=== PATIENT | male | born 1930 | race Two or more races ===

== ENCOUNTER 2020-01-28 13:29 | Inpatient (IN) | payer MEDICARE, OTHER ==
[~2020-01-28] VITALS: Ht 162.6 cm; Wt 59.0 kg
--- NOTE | 2020-01-28 13:45 | NUR ---
ANGEL [phone]. [facility] [phone].
[2020-01-28] MEDS ORDERED: ACETAMINOPHEN 650 MG/SUPP.RECT RC ONE ×2 (13:58→14:00)
[2020-01-28] MEDS ORDERED: IV NS 0.9% 500 ML IV ONE (14:00)
--- NOTE | 2020-01-28 14:22 | NUR ---
BIBA 878 From Home "Been Coughing x1wk, Now have Fever". PT AAOX2, VSS. RR EVEN & UNLABORED. DENIES CP, SOB, DIZZINESS, N/V/D AT THIS TIME. PT SEEN & EVAL'D BY DR. CROWLEY. PLACED ON FAMILY COACH, SR. MEDICATED ORDERED, PT TY WELL. WILL CONT TO MONITOR.
[2020-01-28] MEDS ORDERED: QUET25TA PO (14:43)
[2020-01-28] MEDS ORDERED: METF-442 PO (14:43)
[2020-01-28] MEDS ORDERED: AMLO5TAB9 PO (14:43)
[2020-01-28] MEDS ORDERED: AMIO200T4 PO (14:43)
[2020-01-28] MEDS ORDERED: BIMA2.5D5 EACHEYE (14:43)
[2020-01-28] MEDS ORDERED: MIDO5TAB4 PO (14:43)
[2020-01-28] MEDS ORDERED: BRIM5DRO2 EACHEYE (14:43)
[2020-01-28] MEDS ORDERED: POTA10TA11 PO (14:43)
[2020-01-28] MEDS ORDERED: LEVO75TA7 PO (14:43)
[2020-01-28] MEDS ORDERED: GABA-532 PO (14:43)
[2020-01-28] MEDS ORDERED: LANS30CA56 PO (14:43)
[2020-01-28] MEDS ORDERED: TAMS-12 PO (14:43)
[2020-01-28] MEDS ORDERED: FURO20TA4 PO (14:43)
[2020-01-28] MEDS ORDERED: SIMV10TA98 PO (14:43)
[2020-01-28] MEDS ORDERED: BENA20TA9 PO (14:43)
[2020-01-28] MEDS ORDERED: FINA5TAB11 PO (14:43)
[2020-01-28 14:48] LABS: APPEARANCE,URINE Clear (CLEAR); BILIRUBIN,URINE Negative (NEGATIVE); BLOOD, URINE Negative Ery/uL (NEGATIVE); COLOR,URINE Yellow (YELLOW); KETONES,URINE Negative (NEGATIVE); LEUKOCYTE ESTERASE ,URINE Negative (NEGATIVE); NITRITE, URINE Negative (NEGATIVE); PH,URINE 7.5 (5.0-8.0); PROTEIN,URINE Negative (NEGATIVE); UGLUCOSE Negative (NEGATIVE); UROBILINOGEN,URINE 0.2 EU/dL (0.2)
[2020-01-28 14:50] LABS: BASOPHILS % (AUTO) 0.2 % (0.0-2.0); EOSINOPHILS % (AUTO) 0.4 % (0.0-6.0); HEMATOCRIT 34 % (39-51); HEMOGLOBIN 11.4 g/dL (13.5-17.5); LYMPHOCYTES # (AUTO) 0.9 /CMM (0.8-4.8); LYMPHOCYTES % (AUTO) 6.6 % (20.0-44.0); MEAN CORPUSCULAR HGB CONC 33 g/dl (31.0-36.0); MEAN CORPUSCULAR VOLUME 102 fL (80-96); MONOCYTES # (AUTO) 0.8 /CMM (0.1-1.30); MONOCYTES % (AUTO) 5.6 % (2.0-12.0); NEUTROPHILS # (AUTO) 12.4 /CMM (1.8-8.9); NEUTROPHILS % (AUTO) 87.2 % (43.0-81.0); PLATELET COUNT (AUTO) 225 /CMM (150-450); RED BLOOD CELL COUNT(AUTO) 3.38 MIL/uL (4.5-6.0); WHITE BLOOD COUNT (AUTO) 14.2 K/uL (4.3-11.0)
[2020-01-28 14:57] LABS: CALCIUM, SERUM 9.6 mg/dL (8.5-10.1); CARBON DIOXIDE 28 mmol/L (21-32); CHLORIDE 100 mmol/L (98-107); CREATININE 1.9 mg/dL (0.6-1.3); GLUCOSE 146 mg/dL (74-106); POTASSIUM 4.6 mmol/L (3.5-5.1); SODIUM SERUM 138 mmol/L (136-145); UREA NITROGEN, BLOOD 41 mg/dL (7-18)
[2020-01-28 15:09] LABS: ALANINE AMINOTRANSFERASE 17 U/L (12-78); ALBUMIN 3.8 g/dL (3.4-5.0); ALKALINE PHOSPHATASE 79 U/L (46-116); ASPARTATE AMINOTRANSFERASE 19 U/L (15-37); B-TYPE NATRIURETIC PEPTIDE 569 PG/ML (0-125); BILIRUBIN,TOTAL 0.5 mg/dL (0.2-1.0); TOTAL PROTEIN, SERUM 8.1 g/dL (6.4-8.2)
[2020-01-28 15:23] LABS: D-DIMER 0.66 mg/L(FEU (0.17-0.50)
[2020-01-28] MEDS ORDERED: VANCOMYCIN 1 GM in IV D5W 250 ML IV ONE (15:30)
[2020-01-28] MEDS ORDERED: IV NS 0.9% 500 ML BAG IV ONE (15:30)
[2020-01-28] MEDS ORDERED: PIPERACILLIN /TAZOBACTAM 3.375 G in IV D5W 50 ML IV ONE (15:30)
[2020-01-28 16:17] LABS: CREATINE KINASE, TOTAL 43 U/L (39-308); FERRITIN 131 ng/mL (8-388)
[2020-01-28 16:20] LABS: C-REACTIVE PROTEIN 6.9 mg/dL (0.0-0.9)
--- NOTE | 2020-01-28 16:53 | NUR ---
PAGED SHERRON WISE
--- NOTE | 2020-01-28 17:00 | NUR ---
PT ASLEEP, EASILY AWAKEN BY VERBAL STIMULI, VSS. RR EVEN & UNLABORED. NAD NOTED AT THIS TIME & WILL CONT TO MONITOR.
[2020-01-28] MEDS ORDERED: FEE PK DOSING 1 MIN EA MC ONE (17:26)
[2020-01-28] MEDS ORDERED: ACETAMINOPHEN 325 MG TABLET PO PRN (17:30)
[2020-01-28] MEDS ORDERED: ONDANSETRON HCL/PF 4 MG/2 ML VIAL IVP PRN (17:30)
[2020-01-28] MEDS ORDERED: ZOLPIDEM TARTRATE 5 MG TABLET PO PRN (17:30)
[2020-01-28] MEDS ORDERED: MAGNESIUM HYDROXIDE 30 ML UDC PO PRN (17:30)
[2020-01-28] MEDS ORDERED: HYDROCODONE/APAP 5/325MG 1 EACH TABLET PO PRN (17:30)
--- NOTE | 2020-01-28 18:10 | NUR ---
REPORT GIVEN TO TRIXIE BRASWELL FOR MARITZA.
--- NOTE | 2020-01-28 18:42 | NUR ---
Received patient form ER via [facility]. Patient is A/Ox1, Kiswahili speaker, on RA, tolerating well O2 sat is 98%, IV on R AC g18 noted, intact and patent, running Vancomycin @250 cc/hr, Vital sights taking upon admission, BP 115/48, HR:65, Temp 97, Resp 14. Safety measures implemented, bed in lowest position, side rails up x2, call light within reach, will endorse to Mabel JACOBO shift RN for MARITZA
--- NOTE | 2020-01-28 19:45 | NUR ---
RN OPENING NOTE RECEIVED PT IN BED. PT IS CONFUSED. NO S/S OF DISTRESS. NO SOB. PT IS ON RA SATING 97%. PT HAS IV ACCESS 18 G AC S/L . IV INTACT FLUSHES WELL. SAFETY MEASURES IN PLACE. BED AT LOWEST POSITION, LOCKED,SIDE RAILS UP, CALL LIGHT IN REACH. WILL CONTINUE TO MONITOR
[2020-01-28 20:00] VITALS: BP 151/67
[2020-01-28] MEDS ORDERED: PIPERACILLIN /TAZOBACTAM 2.25 G in IV D5W 50 ML IV SCH (21:00)
[2020-01-28] MEDS ORDERED: MEROPENEM 1 G in IV NS 0.9% 100 ML IV SCH ×4 (21:30)
--- NOTE | 2020-01-28 22:01 | NUR ---
RN NOTES CONFIRMED WITH [facility] AFTER HOURS THAT MERREM 1 GM TO BE GIVEN NOW ; SPOKE TO QUIRINO
[2020-01-28] MEDS ORDERED: MEROPENEM 1 G VIAL IV ONE (22:04)
[2020-01-28] MEDS: IV NS 0.9% 1,000 ML IV PRN (22:07)
[2020-01-28 22:12] LABS: BILIRUBIN,DIRECT 0.2 mg/dL (0.0-0.2)
--- NOTE | 2020-01-28 22:30 | NUR ---
RN NOTE RECEIVED CRITICAL LAB VALUE LACTIC ACID 2.6. MD MADE AWARE NO ORDER AT THIS TIME.
[2020-01-28] MEDS: BIMATOPROST 2.5 ML DROPS OP SCH (23:00)
[2020-01-28] MEDS ORDERED: DEXTROSE 50%-WATER 50 ML DISP.SYRIN IV PRN (23:00)
--- NOTE | 2020-01-28 23:00 | NUR ---
RN NOTE EYE DROP NON ADMIN BECAUSE IT IS NOT AVAILABLE. MED FAXED TO [facility]YSIC[facility] , IT IS NOT AVAILABLE.
[2020-01-29] VITALS: BP 122/64
[2020-01-29] MEDS: BLOOD SUGAR DIAGNOSTIC 1 EACH STRIP IN SCH ×5 (01:42→23:25)
[2020-01-29] MEDS: PANTOPRAZOLE 40 MG VIAL IV SCH ×2 (01:43→22:17)
--- NOTE | 2020-01-29 02:06 | NUR ---
RN NOTE BED SIDE SWALLOW GUANKAO DONE PT UNABLE TO FOLLOW COMMANDS, MD MADE AWARE . NEW ORDER FOR D5 AT 75 ML/HR. WILL CONTINUE TO MONITOR
[2020-01-29] MEDS: IV D5W 1,000 ML IV PRN ×2 (02:53→09:47)
[2020-01-29 04:00] VITALS: BP 119/60
[2020-01-29 06:20] LABS: BASOPHILS % (AUTO) 0.2 % (0.0-2.0); EOSINOPHILS % (AUTO) 0.5 % (0.0-6.0); HEMATOCRIT 30 % (39-51); LYMPHOCYTES # (AUTO) 1.1 /CMM (0.8-4.8); LYMPHOCYTES % (AUTO) 7.6 % (20.0-44.0); MEAN CORPUSCULAR HGB CONC 33 g/dl (31.0-36.0); MEAN CORPUSCULAR VOLUME 103 fL (80-96); MONOCYTES % (AUTO) 6.4 % (2.0-12.0); NEUTROPHILS # (AUTO) 12.9 /CMM (1.8-8.9); NEUTROPHILS % (AUTO) 85.3 % (43.0-81.0); PLATELET COUNT (AUTO) 171 /CMM (150-450); RED BLOOD CELL COUNT(AUTO) 2.95 MIL/uL (4.5-6.0); WHITE BLOOD COUNT (AUTO) 15.1 K/uL (4.3-11.0)
[2020-01-29] MEDS ORDERED: MEROPENEM 1 G VIAL IV ONE (06:33)
[2020-01-29] MEDS: MEROPENEM 1 G in IV NS 0.9% 100 ML IV SCH ×2 (06:36→19:01)
--- NOTE | 2020-01-29 06:47 | NUR ---
RN CLOSING NOTE PT REMAINED STABLE DURING MY SHIFT. VSS. WILL ENDORSE TO INCOMING SHIFT FOR MARITZA.
--- NOTE | 2020-01-29 07:30 | NUR ---
RN NOTES RECEIVED PATIENT IN BED. AWAKE, VERBAL BUT IS NOT APPROPRIATE. ON ROOM AIR. TOLERATING WELL. SATING FINE. NO SHORTNESS OF BREATH NOTED AT THIS TIME. SINUS RHYTHM ON THE MONITOR WITH HR ON THE 70s. PATIENT CLEAN AND COMFORTABLE IN BED. IV ACCESS ON THE RFA G [address] AND INTACT, FLUSHING WELL. WITH ONGOING D5W AT 70 CC/HR. RESTRAINTS ON THE R WRIST, REMOVE AND REPLACED TO CHECK FOR SKIN INTEGRITY, NO SKIN ISSUE NOTED AT THIS TIME. SAFETY MEASURES OBSERVED AND MAINTAINED. A CALL LIGHT PLACED WITHIN REACH. WILL KEEP PATIENT ON ISOLATION AND WILL CONTINUE TO MONITOR PATIENT ACCORDINGLY
[2020-01-29 07:52] LABS: CALCIUM, SERUM 8.5 mg/dL (8.5-10.1); CARBON DIOXIDE 25 mmol/L (21-32); CHLORIDE 101 mmol/L (98-107); CREATININE 1.5 mg/dL (0.6-1.3); GLUCOSE 129 mg/dL (74-106); MAGNESIUM 1.5 mg/dL (1.8-2.4); PHOSPHORUS 3.6 mg/dL (2.5-4.9); POTASSIUM 3.9 mmol/L (3.5-5.1); SODIUM SERUM 137 mmol/L (136-145); UREA NITROGEN, BLOOD 31 mg/dL (7-18)
[2020-01-29 08:00] VITALS: BP 158/67
[2020-01-29 08:12] LABS: CHOLESTEROL 113 mg/dL (<200); CREATINE KINASE, TOTAL 59 U/L (39-308); HDL CHOLESTEROL 51 mg/dL (40-60); LDL 53 mg/dL (0-99); TRIGLYCERIDES 74 mg/dL (30-150)
[2020-01-29 08:23] LABS: APPEARANCE,URINE CLEAR (CLEAR); BILIRUBIN,URINE NEGATIVE (NEGATIVE); BLOOD, URINE NEGATIVE Ery/uL (NEGATIVE); COLOR,URINE YELLOW (YELLOW); KETONES,URINE NEGATIVE (NEGATIVE); LEUKOCYTE ESTERASE ,URINE NEGATIVE (NEGATIVE); NITRITE, URINE NEGATIVE (NEGATIVE); PROTEIN,URINE NEGATIVE (NEGATIVE); UGLUCOSE NEGATIVE (NEGATIVE); UROBILINOGEN,URINE 0.2 EU/dL (0.2)
[2020-01-29] MEDS: LEVOTHYROXINE SODIUM 75 MCG TABLET PO SCH (08:25)
[2020-01-29] MEDS: HEPARIN SODIUM, PORCINE 5000 UNITS/1 ML VIAL SQ SCH ×2 (08:25→20:24)
[2020-01-29] MEDS: BRIMONIDINE TARTRATE OPHT SOLN 5 ML BOTTLE EACHEYE SCH ×2 (08:26→17:18)
[2020-01-29] MEDS: TIMOLOL 0.5% SOLN OPHTH 5 ML BOTTLE EACHEYE SCH ×2 (08:26→17:18)
[2020-01-29] MEDS: ASPIRIN 81 MG TAB.CHEW PO SCH (08:27)
[2020-01-29] MEDS: AMIODARONE HCL 200 MG TABLET PO SCH (08:27)
[2020-01-29] MEDS: GABAPENTIN 100 MG CAPSULE PO SCH ×3 (08:28→17:18)
[2020-01-29] MEDS: TAMSULOSIN 0.4 MG CAP.SR.24H PO SCH (08:28)
[2020-01-29] MEDS: AMLODIPINE BESYLATE 5 MG TABLET PO SCH (08:28)
[2020-01-29] MEDS: FINASTERIDE (5 MG) 5 MG TABLET PO SCH (08:29)
[2020-01-29 08:38] LABS: CREATININE, URINE 45.8 MG/DL (30.0-125.0); URINE TOTAL PROTEIN 31.4 mg/dL (0-11.9)
[2020-01-29] MEDS ORDERED: ENOXAPARIN SODIUM 30 MG/0.3 ML DISP.SYRIN SQ SCH (10:00)
[2020-01-29] MEDS: Magnesium 1GM/D5W 100ML PREMIX 100 ML IV SCH ×2 (10:13→11:32)
[2020-01-29 10:14] LABS: EOSINOPHIL,URINE None Seen
[2020-01-29 10:16] LABS: IRON, SERUM 21 ug/dl (50-175); TOTAL IRON BINDING CAPACITY 269 ug/dl (250-450)
[2020-01-29 10:27] LABS: CHOLESTEROL 110 mg/dL (<200); HDL CHOLESTEROL 49 mg/dL (40-60); LDL 53 mg/dL (0-99); THYROID STIMULATING HORMONE 0.452 uIU/mL (0.358-3.74); TRIGLYCERIDES 68 mg/dL (30-150)
[2020-01-29 12:00] VITALS: BP 144/46
[2020-01-29] MEDS: INSULIN REGULAR, HUMAN 100 UNIT/ML 3 ML VIAL SQ PRN ×2 (12:43→23:20)
[2020-01-29 16:00] VITALS: BP 159/60
[2020-01-29] MEDS ORDERED: VANCOMYCIN 500 MG in IV D5W 100ml IV SCH (17:00)
[2020-01-29] MEDS ORDERED: VANCOMYCIN 0.75 GM in IV D5W 250 ML IV SCH (17:00)
--- NOTE | 2020-01-29 19:12 | NUR ---
rn notes endorsed for continuity of care. not on any form of distress. breathing unlabored. still on room air. no acute changes within the shift. all nursing needs attended and met. safety measures in place at all times. call light within reach. isolation precaution imitated at all time.
--- NOTE | 2020-01-29 19:30 | NUR ---
RN OPENING NOTES Received patient resting in bed, with no s/s/ of distress, client is saturating at 98% RA. A/O x 2. NO s/s of pain, the client denies pain. The client is on external telemonitor, SR, HR 80. Skin is intact, the left limb is contracted. The client is R wrist soft restraint to prevent disruption of mediation. The client has R 22G, flushing well. All safety mechanisms in place. Bed in the lowest position, call light within reach. Will continue to monitor the client.
[2020-01-29 20:00] VITALS: BP 145/85
--- NOTE | 2020-01-29 20:30 | NUR ---
RN NOTES Sputum sample was collected and sent to the lab for sputum culture.
[2020-01-29] MEDS: BIMATOPROST 2.5 ML DROPS OP SCH (22:00)
[2020-01-29] MEDS: ATORVASTATIN 10 MG TABLET PO SCH (22:17)
--- NOTE | 2020-01-29 22:55 | NUR ---
RN NOTES Nasopharynx swab collected and sent to lab for influenza A+B.
[2020-01-30] VITALS (8 sets, daily range): BP systolic 86–163; BP diastolic 30–85
[2020-01-30] MEDS: IV NS 0.9% 1,000 ML IV PRN (05:06)
[2020-01-30] MEDS: MEROPENEM 1 G in IV NS 0.9% 100 ML IV SCH ×2 (05:09→17:46)
[2020-01-30] MEDS: BLOOD SUGAR DIAGNOSTIC 1 EACH STRIP IN SCH ×3 (05:27→18:02)
--- NOTE | 2020-01-30 06:22 | NUR ---
RN CLOSING NOTES patient IS resting in bed, with no s/s/ of distress, client is saturating at 100% RA. A/O x 2. NO s/s of pain, the client denies pain. The client is on external telemonitor, SR, HR 70. The client bilateral wrist restrains, skin is intact, capillary refill less than 3 sec. The client has R 22G, flushing well. All safety mechanisms in place. Bed in the lowest position, call light within reach. Will endorse the client for continuity of care.
[2020-01-30 06:27] LABS: BASOPHILS % (AUTO) 0.3 % (0.0-2.0); EOSINOPHILS % (AUTO) 0.5 % (0.0-6.0); HEMATOCRIT 27 % (39-51); HEMOGLOBIN 9.2 g/dL (13.5-17.5); LYMPHOCYTES # (AUTO) 1.2 /CMM (0.8-4.8); LYMPHOCYTES % (AUTO) 14.7 % (20.0-44.0); MEAN CORPUSCULAR HGB CONC 34 g/dl (31.0-36.0); MEAN CORPUSCULAR VOLUME 102 fL (80-96); MONOCYTES # (AUTO) 0.4 /CMM (0.1-1.30); MONOCYTES % (AUTO) 5.2 % (2.0-12.0); NEUTROPHILS # (AUTO) 6.7 /CMM (1.8-8.9); NEUTROPHILS % (AUTO) 79.3 % (43.0-81.0); PLATELET COUNT (AUTO) 173 /CMM (150-450); RED BLOOD CELL COUNT(AUTO) 2.69 MIL/uL (4.5-6.0); WHITE BLOOD COUNT (AUTO) 8.4 K/uL (4.3-11.0)
[2020-01-30 06:58] LABS: CALCIUM, SERUM 7.7 mg/dL (8.5-10.1); CREATININE 1.2 mg/dL (0.6-1.3); MAGNESIUM 1.7 mg/dL (1.8-2.4); PHOSPHORUS 2.6 mg/dL (2.5-4.9)
--- NOTE | 2020-01-30 07:25 | NUR ---
RN OPENING NOTES Received patient in bed, sleeping. A/O x 2, Guyanese speaking only. Patient is on RA, tolerating well, no s/sx of distress, O2 sat is 98%, IV site noted on R arm, running NS @75cc/hr, intact and patent. Skin is intact, soft restrains is on, tolerating well. Bed in lowest position, call light within reach, side rails x2, safety measures implemented, will cont to monitor
[2020-01-30] MEDS: LEVOTHYROXINE SODIUM 75 MCG TABLET PO SCH (07:39)
[2020-01-30] MEDS: ASPIRIN 81 MG TAB.CHEW PO SCH (08:07)
[2020-01-30] MEDS: FINASTERIDE (5 MG) 5 MG TABLET PO SCH (08:07)
[2020-01-30] MEDS: AMLODIPINE BESYLATE 5 MG TABLET PO SCH (08:08)
[2020-01-30] MEDS: TAMSULOSIN 0.4 MG CAP.SR.24H PO SCH (08:09)
[2020-01-30] MEDS: AMIODARONE HCL 200 MG TABLET PO SCH (08:09)
[2020-01-30] MEDS: GABAPENTIN 100 MG CAPSULE PO SCH ×3 (08:13→17:39)
[2020-01-30] MEDS: HEPARIN SODIUM, PORCINE 5000 UNITS/1 ML VIAL SQ SCH ×2 (08:13→21:28)
[2020-01-30] MEDS ORDERED: POTASSIUM CHLORIDE 20 MEQ TAB.PRT.SR PO SCH (09:00)
[2020-01-30] MEDS: BRIMONIDINE TARTRATE OPHT SOLN 5 ML BOTTLE EACHEYE SCH ×2 (09:16→17:42)
[2020-01-30] MEDS: TIMOLOL 0.5% SOLN OPHTH 5 ML BOTTLE EACHEYE SCH ×2 (09:16→17:42)
[2020-01-30] MEDS: hydrALAZINE HCL 50 MG TABLET PO SCH ×3 (09:22→17:00)
[2020-01-30] MEDS: ISOSORBIDE DINITRATE (20MG) 20 MG TABLET PO SCH ×2 (09:22→17:00)
[2020-01-30] MEDS: Magnesium 1GM/D5W 100ML PREMIX 100 ML IV SCH ×2 (09:23→10:38)
--- NOTE | 2020-01-30 11:00 | NUR ---
Pt releases himself from restrains, pulled out IV, and tele-monitor leaads, started new IV line of R FA G20, patent, intact, reapplied soft restraints
--- NOTE | 2020-01-30 11:41 | NUR ---
Dimitris Bourgeois, spoke to Pharmacy, waiting for trough results
[2020-01-30] MEDS ORDERED: QUETIAPINE FUMARATE 25 MG TABLET PO ONE (12:00)
--- NOTE | 2020-01-30 12:03 | NUR ---
BULLDOZER OPERATOR ordered Seroquel 25 mg, PO, ONCE, will administer
[2020-01-30 12:16] LABS: PTH, INTACT 29 pg/mL (15-65)
--- NOTE | 2020-01-30 12:30 | NUR ---
Patient pulled out his IV again, new line on Left FA G22 started, patent and intact
[2020-01-30] MEDS ORDERED: VANCOMYCIN 0.75 GM in IV D5W 250 ML IV SCH (13:00)
[2020-01-30] MEDS: INSULIN REGULAR, HUMAN 100 UNIT/ML 3 ML VIAL SQ PRN ×2 (13:06→18:04)
--- NOTE | 2020-01-30 13:07 | NUR ---
OK TO GIVE VANCO PER PHARMACY
--- NOTE | 2020-01-30 18:00 | NUR ---
Patient BP went down, did multiple measurement and locations, ANALOG IC DESIGN ARCHITECT notified
--- NOTE | 2020-01-30 19:25 | NUR ---
RN CLOSING NOTES Patient sleeping at bed , has continuous BP monitoring with latest reading 78/35 PIZZAMAKER notified, obtained order for IV bolus. Safety measures implemented, call light within reach, bed in lowest position, comfort needs are met, endorsing to Dividend Clerk TRIXIE Monroe for cont of care
[2020-01-30] MEDS ORDERED: IV NS 0.9% 1,000 ML IV ONE (19:30)
--- NOTE | 2020-01-30 19:35 | NUR ---
1934 SUMMONED TO PATIENT'S ROOM, PATIENT IN BED WITH IVF BOLUS INFUSING TO LEFT HAND IV SITE. BP 77/40 WHEN CHECKED. NO SIGNS OF DISTRESS NOTED. STARTED NEW IV ACCESS ON RIGHT FOREARM, PATIENT STARTED GETTING AGITATED AND TRYING TO PULL ARM AND SIDE RAILS. NOTED MAKING INCOMPREHENSIBLE SOUNDS. RECHECKED BP AND OBTAINED 103/78 WITH CUFF ON RIGHT LEG. PLACED PATIENT ON O2 AT 2L PER NC. O2 SATURATION 98%-99%. NO SIGNS OF FLUID OVERLOAD NOTED. KEPT PATIENT COMFORTABLE. MONITORING CLOSELY.
--- NOTE | 2020-01-30 19:45 | NUR ---
RN OPENING NOTE PT RECEIVED IN BED LETHARGIC WITH BP 83/35 CUFF ON R LEG. BP TAKEN ON R ARM WAS 77/35 . DAY SHIFT NURSE GOT ORDER OF 9% NS BOLUS FROM DR WISE. BOLUS IS INFUSING TO LEFT ARM.RECHECKED BP ON R LEG 103/78. CHARGE NURSE MADE AWARE AND SHE IS PRESENT AT BED SIDE. NEW IV SITE STARTED ON R ARM 20 G PT IS ON 2 L VIA NC SATING ABOVE 97%. NO DISTRESS NOTED. WILL CONTINUE TO MONITOR
--- NOTE | 2020-01-30 20:48 | NUR ---
RN NOTE BP IMPROVING 145/57.
[2020-01-30] MEDS: BIMATOPROST 2.5 ML DROPS OP SCH (22:00)
[2020-01-30] MEDS: QUETIAPINE FUMARATE 25 MG TABLET PO SCH (22:15)
[2020-01-30] MEDS: ATORVASTATIN 10 MG TABLET PO SCH (22:15)
--- NOTE | 2020-01-30 22:18 | NUR ---
RN NOTE MELANIE KRISHNAIN , IT IS NOT AVAILABLE
--- NOTE | 2020-01-30 23:00 | NUR ---
RN OPENING NOTE RECEIVED A PATIENT IN BED RESTING ALERT ORIENTED X1 VERBALLY RESPONSIVE MONGOLIAN SPEAKER BREATHING IS EVEN AND UNLABORED ON 2L/MIN OXYGEN VIA NASAL CANUULA,O2:98% IV NORMAL SALINE RUNNING 75CC/HR IV SITE ON LEFT FOREARM INTACT.ACCU CHECK EVERY HOURS CONTINUE TO MONITOR.
--- NOTE | 2020-01-30 23:08 | NUR ---
RN CLOSING NOTE WILL ENDORSE TO ARACELI MARCUM FOR MARITZA.
[2020-01-30] MEDS: PANTOPRAZOLE 40 MG VIAL IV SCH (23:18)
[2020-01-31] VITALS (8 sets, daily range): BP systolic 118–135; BP diastolic 44–62
--- NOTE | 2020-01-31 00:01 | NUR ---
RN OPENING NOTE RECEIVED PT IN BED AND APPEARS RESTING COMFORTABLY. VERBAL BUT CONFUSED, IN NO S/SX OF ACUTE DISTRESS AT THIS TIME. BREATHING IS EVEN AND UNLABORED, SATURATING AT 98-100% ON O2 AT 2 LPM VIA NC, TOLERATING WELL. PATIENT ON TELE MONITOR READING SINUS RHYTHM, HR IS @60'S. NOTED IV SITE ON RIGHT FOREARM G22, LEAKING, AND LEFT FOREARM WITH NS 1000 ML RUNNING AT 75 ML/HR, PATENT AND FLUSHING WELL,NO S/S OF INFECTION OR INFILTRATION. NOTED MEDICAL RESTRAINTS AT RIGHT WRIST. KEPT CLEAN AND COMFORTABLE. SAFETY MEASURES IMPLEMENTED PER PROTOCOL. PATIENT BED ALARM IS ON. HEAD OF BED ELEVATED. BED IS LOCKED, IN LOWEST POSITION AND SIDE RAILS UP. CALL LIGHT WITHIN REACH OF THE PATIENT. WILL CONTINUE TO MONITOR AND REASSESS FOR ANY CHANGES. Addendum: 02/01/20 at 0417 by PARADISE BOND RN INCORRECT DATE AND TIME
[2020-01-31] MEDS: BLOOD SUGAR DIAGNOSTIC 1 EACH STRIP IN SCH ×4 (00:05→17:41)
[2020-01-31] MEDS: INSULIN REGULAR, HUMAN 100 UNIT/ML 3 ML VIAL SQ PRN ×2 (00:05→05:43)
[2020-01-31] MEDS: MEROPENEM 1 G in IV NS 0.9% 100 ML IV SCH ×2 (05:27→17:42)
--- NOTE | 2020-01-31 05:45 | NUR ---
RN NOTE AT 0000 02/01/20 BLOOD SUGAR WAS 117 NO INSULIN ADMINISTERED,AT 0600 BLOOD SUGAR WAS 114 INSULIN NOT REQUIRED.
[2020-01-31 06:18] LABS: BASOPHILS % (AUTO) 0.5 % (0.0-2.0); EOSINOPHILS % (AUTO) 1.9 % (0.0-6.0); HEMATOCRIT 25 % (39-51); HEMOGLOBIN 8.4 g/dL (13.5-17.5); LYMPHOCYTES % (AUTO) 18.6 % (20.0-44.0); MEAN CORPUSCULAR HGB CONC 34 g/dl (31.0-36.0); MEAN CORPUSCULAR VOLUME 102 fL (80-96); MONOCYTES # (AUTO) 0.5 /CMM (0.1-1.30); MONOCYTES % (AUTO) 9.8 % (2.0-12.0); NEUTROPHILS # (AUTO) 3.6 /CMM (1.8-8.9); NEUTROPHILS % (AUTO) 69.2 % (43.0-81.0); PLATELET COUNT (AUTO) 185 /CMM (150-450); RED BLOOD CELL COUNT(AUTO) 2.44 MIL/uL (4.5-6.0); WHITE BLOOD COUNT (AUTO) 5.3 K/uL (4.3-11.0)
[2020-01-31 06:38] LABS: CALCIUM, SERUM 8.4 mg/dL (8.5-10.1); CARBON DIOXIDE 25 mmol/L (21-32); CHLORIDE 105 mmol/L (98-107); CREATININE 1.5 mg/dL (0.6-1.3); GLUCOSE 123 mg/dL (74-106); PHOSPHORUS 3.2 mg/dL (2.5-4.9); POTASSIUM 4.2 mmol/L (3.5-5.1); SODIUM SERUM 139 mmol/L (136-145); UREA NITROGEN, BLOOD 19 mg/dL (7-18)
[2020-01-31 06:44] LABS: MAGNESIUM 2.1 mg/dL (1.8-2.4)
--- NOTE | 2020-01-31 06:59 | NUR ---
RN CLOSING NOTE. PATIENT IS IN BED RESTING,ALERT ORIENTED X1 VERBALLY RESPONSIVE,LATVIAN SPEAKER ONLY,NO SOB NOT ACUTE DISTRESS NOTED,ON 2L OXYGEN VIA NASAL CANNULA,O2:98%.ALL DUE MEDS GIVEN MD ORDERED,KEPT CLEAN AND DRY ALL THE TIME,ON IV HYDRATION NORMAL SALINE 75CC/HR,IV SITE IS ON LEFT FOREARM,INTACT.ALL NEEDS ATTENDED, WILL ENDORSE MORNING SHIFT FOR CONTINUATION OF CARE.
--- NOTE | 2020-01-31 07:58 | NUR ---
MARIA RN OPENING NOTES RECEIVED PATIENT IN BED, ASLEEP. PATIENT IS ON OXYGEN THERAPY AT 2 LPM; BREATHING IS EVEN AND UNLABORED; NO SOB PRESENT AT THIS TIME. EXTERNAL CATALYST OPERATOR CHIEF WITH A CURRENT READING OF SINUS RHYTHM 63 BPM. NO S/S OF PAIN SUCH FACIAL GRIMACING, MOANING OR GUARDING. LFA IV ACCESS G # 22 PRESENT AND INTACT. SAFETY PRECAUTIONS IN PLACE; BED IN LOW POSITION AND LOCKED, RAIL UP X2, CALL LIGHT WITHIN REACH. WILL CONTINUE TO MONITOR PATIENT.
[2020-01-31] MEDS: LEVOTHYROXINE SODIUM 75 MCG TABLET PO SCH (08:49)
[2020-01-31] MEDS: GABAPENTIN 100 MG CAPSULE PO SCH ×3 (08:49→16:37)
[2020-01-31] MEDS: FINASTERIDE (5 MG) 5 MG TABLET PO SCH (08:49)
[2020-01-31] MEDS: ISOSORBIDE DINITRATE (20MG) 20 MG TABLET PO SCH (08:50)
[2020-01-31] MEDS: ASPIRIN 81 MG TAB.CHEW PO SCH (08:50)
[2020-01-31] MEDS: TAMSULOSIN 0.4 MG CAP.SR.24H PO SCH (08:50)
[2020-01-31] MEDS: AMIODARONE HCL 200 MG TABLET PO SCH (08:53)
[2020-01-31] MEDS: hydrALAZINE HCL 50 MG TABLET PO SCH ×3 (08:53→16:35)
[2020-01-31] MEDS: AMLODIPINE BESYLATE 5 MG TABLET PO SCH (08:54)
[2020-01-31] MEDS: HEPARIN SODIUM, PORCINE 5000 UNITS/1 ML VIAL SQ SCH ×2 (08:55→21:15)
[2020-01-31] MEDS: BRIMONIDINE TARTRATE OPHT SOLN 5 ML BOTTLE EACHEYE SCH ×2 (08:55→16:34)
[2020-01-31] MEDS: TIMOLOL 0.5% SOLN OPHTH 5 ML BOTTLE EACHEYE SCH ×2 (08:55→16:35)
--- NOTE | 2020-01-31 10:08 | NUR ---
FURNACE ROOM SUPERVISOR NOTES MANUAL BP READING AT 10:00 WAS 102/46 AND AUTOMATIC 110/55 WILL CONTINUE TO MONITOR
[2020-01-31] MEDS ORDERED: QUETIAPINE FUMARATE 25 MG TABLET PO ONE (12:30)
--- NOTE | 2020-01-31 12:35 | NUR ---
CERTIFIED DETENTION DEPUTY NOTES 1200 ACCU-CHECK WITH A READING OF 153. INSULIN HELD DUE TO PATIENT REFUSAL TO HAVE LUNCH.
--- NOTE | 2020-01-31 12:45 | NUR ---
RAFTER CUTTING MACHINE OPERATOR NOTES PATIENTS BLOOD PRESSURE ON A LOWER SIDE MOST OF THE DAY SO FAR. FLUCTUATIONS IN BP.
--- NOTE | 2020-01-31 18:53 | NUR ---
MARIA RN CLOSING NOTES PATIENT IN BED, ASLEEP. DURING THE SHIFT A/O X1. PATIENT IS ON OXYGEN THERAPY AT 2 LPM; BREATHING IS EVEN AND UNLABORED; NO SOB PRESENT AT THIS TIME. EXTERNAL WEIGHT CALLER WITH A CURRENT READING OF SINUS RHYTHM 61 BPM. NO S/S OF PAIN SUCH FACIAL GRIMACING, MOANING OR GUARDING. LFA IV ACCESS G # 22 PRESENT AND INTACT INFUSING MERREM AT THIS TIME.. SAFETY PRECAUTIONS IN PLACE; BED IN LOW POSITION AND LOCKED, RAIL UP X2, CALL LIGHT WITHIN REACH. WILL ENDORSE TO RESP THERAPIST NURSE.
--- NOTE | 2020-01-31 19:45 | NUR ---
RN OPENING NOTE RECEIVED PT IN BED AND APPEARS RESTING COMFORTABLY. VERBAL BUT CONFUSED, IN NO S/SX OF ACUTE DISTRESS AT THIS TIME. BREATHING IS EVEN AND UNLABORED, SATURATING AT 98-100% ON O2 AT 2 LPM VIA NC, TOLERATING WELL. PATIENT ON TELE MONITOR READING SINUS RHYTHM, HR IS @60'S. NOTED IV SITE ON RIGHT FOREARM G22, LEAKING, REMOVED ASEPTICALLY. NOTED IV ACCESS AT LEFT FOREARM WITH NS 1000 ML RUNNING AT 75 ML/HR, PATENT AND FLUSHING WELL,NO S/S OF INFECTION OR INFILTRATION. NOTED MEDICAL RESTRAINTS AT RIGHT WRIST. KEPT CLEAN AND COMFORTABLE. SAFETY MEASURES IMPLEMENTED PER PROTOCOL. PATIENT BED ALARM IS ON. HEAD OF BED ELEVATED. BED IS LOCKED, IN LOWEST POSITION AND SIDE RAILS UP. CALL LIGHT WITHIN REACH OF THE PATIENT. WILL CONTINUE TO MONITOR AND REASSESS FOR ANY CHANGES.
--- NOTE | 2020-01-31 21:00 | NUR ---
RN NOTE NOTED BUN 19, CREATININE 1.5, NURSE PLASTICS MADE AWARE OF ELEVATED VALUES, DUE HEPARIN SODIUM 5000 UNITS GIVEN SCHEDULED.
[2020-01-31] MEDS: BIMATOPROST 2.5 ML DROPS OP SCH ×2 (21:16→21:54)
[2020-01-31] MEDS: QUETIAPINE FUMARATE 25 MG TABLET PO SCH (21:17)
[2020-01-31] MEDS: ATORVASTATIN 10 MG TABLET PO SCH (21:17)
--- NOTE | 2020-01-31 21:57 | NUR ---
RN NOTE LUMIGAN EYE DROPS NOT ADMINISTERED NOT AVAILABLE. MULCHER OPERATOR MADE AWARE
[2020-02-01] VITALS (7 sets, daily range): BP systolic 102–145; BP diastolic 45–66
[2020-02-01] MEDS: PANTOPRAZOLE 40 MG VIAL IV SCH ×2 (00:39→23:46)
[2020-02-01] MEDS: BLOOD SUGAR DIAGNOSTIC 1 EACH STRIP IN SCH ×4 (00:40→18:03)
--- NOTE | 2020-02-01 03:00 | NUR ---
RN NOTE NOTED IV ACCESS AT LEFT FOREARM PULLED OUT. RESINSERTED IV LINE AT RIGHT FOREARM G22 ASEPTICALLY, RECONNECTED TO IV LINE NS 1000 ML AT 75 ML/HR. PATENT AND FLUSHING WELL.
[2020-02-01] MEDS: IV NS 0.9% 1,000 ML IV PRN (03:53)
--- NOTE | 2020-02-01 06:00 | NUR ---
RN NOTE NOTED IV SITE AT RIGHT FOREARM PULLED OUT. ATTEMPTED TO REINSERT IV LINE TWO TIMES, BUT NO BACKFLOW NOTED. ENDORSING TO INCOMNING SHIFT FOR CONTINUATION OF CARE.
[2020-02-01 06:24] LABS: BASOPHILS % (AUTO) 0.8 % (0.0-2.0); EOSINOPHILS % (AUTO) 3.4 % (0.0-6.0); HEMATOCRIT 27 % (39-51); LYMPHOCYTES % (AUTO) 19.9 % (20.0-44.0); MEAN CORPUSCULAR HGB CONC 33 g/dl (31.0-36.0); MEAN CORPUSCULAR VOLUME 103 fL (80-96); MONOCYTES # (AUTO) 0.4 /CMM (0.1-1.30); MONOCYTES % (AUTO) 7.8 % (2.0-12.0); NEUTROPHILS # (AUTO) 3.3 /CMM (1.8-8.9); NEUTROPHILS % (AUTO) 68.1 % (43.0-81.0); PLATELET COUNT (AUTO) 195 /CMM (150-450); RED BLOOD CELL COUNT(AUTO) 2.62 MIL/uL (4.5-6.0); WHITE BLOOD COUNT (AUTO) 4.8 K/uL (4.3-11.0)
[2020-02-01 06:52] LABS: CALCIUM, SERUM 8.4 mg/dL (8.5-10.1); CREATININE 1.2 mg/dL (0.6-1.3); MAGNESIUM 1.7 mg/dL (1.8-2.4); PHOSPHORUS 2.9 mg/dL (2.5-4.9); POTASSIUM 3.7 mmol/L (3.5-5.1)
--- NOTE | 2020-02-01 08:20 | NUR ---
PATIENT AGITATED UNABLE TO PLACE IV 2X,MD NOTIFIED REVIEWED MEDS/LABS ,PER MD WILL NOTIFY ID .MIDLINE ORDER OBTAINED.
[2020-02-01] MEDS ORDERED: HALOPERIDOL LACTATE INJ 5 MG/ML VIAL IV ONE (08:30)
[2020-02-01] MEDS: ASPIRIN 81 MG TAB.CHEW PO SCH (10:07)
[2020-02-01] MEDS: AMIODARONE HCL 200 MG TABLET PO SCH (10:07)
[2020-02-01] MEDS: Magnesium 1GM/D5W 100ML PREMIX 100 ML IV SCH ×2 (10:07→15:01)
[2020-02-01] MEDS: LEVOTHYROXINE SODIUM 75 MCG TABLET PO SCH (10:08)
[2020-02-01] MEDS: hydrALAZINE HCL 50 MG TABLET PO SCH ×3 (10:08→17:00)
[2020-02-01] MEDS: AMLODIPINE BESYLATE 5 MG TABLET PO SCH (10:08)
[2020-02-01] MEDS: GABAPENTIN 100 MG CAPSULE PO SCH ×3 (10:08→18:02)
[2020-02-01] MEDS: TAMSULOSIN 0.4 MG CAP.SR.24H PO SCH (10:08)
[2020-02-01] MEDS: FINASTERIDE (5 MG) 5 MG TABLET PO SCH (10:08)
[2020-02-01] MEDS: HEPARIN SODIUM, PORCINE 5000 UNITS/1 ML VIAL SQ SCH ×2 (10:10→21:28)
[2020-02-01] MEDS: BRIMONIDINE TARTRATE OPHT SOLN 5 ML BOTTLE EACHEYE SCH ×2 (10:20→18:02)
[2020-02-01] MEDS: TIMOLOL 0.5% SOLN OPHTH 5 ML BOTTLE EACHEYE SCH ×2 (10:20→18:02)
[2020-02-01 15:06] LABS: *SPE A/G RATIO 0.9 (0.7-1.7); *SPE ALBUMIN 2.8 g/dL (2.9-4.4); *SPE ALPHA-1-GLOBULIN 0.3 g/dL (0.0-0.4); *SPE ALPHA-2-GLOBULIN 0.9 g/dL (0.4-1.0); *SPE BETA GLOBULIN 0.9 g/dL (0.7-1.3); *SPE GLOBULIN, TOTAL 3.1 g/dL (2.2-3.9); *SPE M-SPIKE Not Observed g/dL (Not Observed)
[2020-02-01] MEDS: ATORVASTATIN 10 MG TABLET PO SCH (21:27)
[2020-02-01] MEDS: QUETIAPINE FUMARATE 25 MG TABLET PO SCH (21:27)
[2020-02-01] MEDS: BIMATOPROST 2.5 ML DROPS OP SCH (21:29)
[2020-02-02] VITALS: BP 132/65
[2020-02-02] MEDS: BLOOD SUGAR DIAGNOSTIC 1 EACH STRIP IN SCH ×4 (00:46→18:35)
[2020-02-02 04:00] VITALS: BP 130/68
[2020-02-02] MEDS: IV NS 0.9% 1,000 ML IV PRN (05:28)
[2020-02-02 06:48] LABS: CALCIUM, SERUM 8.6 mg/dL (8.5-10.1); CREATININE 1.1 mg/dL (0.6-1.3); MAGNESIUM 2.2 mg/dL (1.8-2.4)
--- NOTE | 2020-02-02 07:15 | NUR ---
RN OPENING NOTES RECEIVED PATIENT ON BED SITE, RESTING, A/OX2, MONEGASQUE SPEAKER ONLY. ON NC INTERMITTENT @ 4 L OF O2, SATURATING 99%, NO S/SX OF RESP DISTRESS OR PAIN NOTED, PATIENT IS ON TEL-MONITOR WITH SR READINGS, MIDLINE IV LINE NOTED ON BENNETT, G20, PATENT AND INTACT. SAFETY MEASURES IMPLEMENTED, BED IN LOWEST POSITION, HOB ELEVATED, CALL LIGHT WITHIN REACH, WILL CONT TO MONITOR
[2020-02-02] MEDS: LEVOTHYROXINE SODIUM 75 MCG TABLET PO SCH (07:46)
[2020-02-02 08:00] VITALS: BP 133/54
[2020-02-02] MEDS: TIMOLOL 0.5% SOLN OPHTH 5 ML BOTTLE EACHEYE SCH ×2 (08:57→17:06)
[2020-02-02] MEDS: GABAPENTIN 100 MG CAPSULE PO SCH ×3 (08:58→17:06)
[2020-02-02] MEDS: BRIMONIDINE TARTRATE OPHT SOLN 5 ML BOTTLE EACHEYE SCH ×2 (08:58→17:06)
[2020-02-02] MEDS: hydrALAZINE HCL 50 MG TABLET PO SCH ×3 (08:59→17:00)
[2020-02-02] MEDS: TAMSULOSIN 0.4 MG CAP.SR.24H PO SCH (08:59)
[2020-02-02] MEDS: FINASTERIDE (5 MG) 5 MG TABLET PO SCH (08:59)
[2020-02-02] MEDS: AMIODARONE HCL 200 MG TABLET PO SCH (09:00)
[2020-02-02] MEDS: AMLODIPINE BESYLATE 5 MG TABLET PO SCH (09:00)
[2020-02-02] MEDS: ASPIRIN 81 MG TAB.CHEW PO SCH (09:01)
[2020-02-02] MEDS: HEPARIN SODIUM, PORCINE 5000 UNITS/1 ML VIAL SQ SCH (09:03)
--- NOTE | 2020-02-02 10:00 | NUR ---
Patient's daughter called, asked about COVID results status,results are still pending since 12-29-2019
[2020-02-02 12:00] VITALS: BP 137/57
[2020-02-02] MEDS: INSULIN REGULAR, HUMAN 100 UNIT/ML 3 ML VIAL SQ PRN ×2 (12:21→18:35)
--- NOTE | 2020-02-02 14:41 | NUR ---
COVID NEGATIVE RESULTS PER LAB CALL
[2020-02-02] MEDS ORDERED: ASPI-1169 PO (15:00)
[2020-02-02] MEDS ORDERED: ATOR10TA PO (15:00)
[2020-02-02] MEDS ORDERED: HYDR-4077 PO (15:00)
[2020-02-02 16:10] VITALS: BP 105/53
--- NOTE | 2020-02-02 16:13 | NUR ---
patient sbp on r upper arm 80,s and rechecked on LLE 105/55 ,SHERRON WISE NOTIFIED ORDERED TO GIVE BOLUS 500ML AND OK PT. TO DISCHARGE.
[2020-02-02] MEDS ORDERED: IV NS 0.9% 500 ML IV ONE (16:30)
[2020-02-02 17:00] VITALS: BP 105/50
--- NOTE | 2020-02-02 18:36 | NUR ---
RN CLOSING NOTES PATIENT AT THE BED, RESTING CALMLY, ON ROOM AIR, TOLERATING WELL, SAFETY MEASURES IMPLEMENTED, DISCHARGE INSTRUCTION GIVEN, WILL ENDORSE TO DIRECTOR EDUCATIONAL RADIO RN TO COMPLETE DISCHARGE PROTOCOL
--- NOTE | 2020-02-02 18:36 | NUR ---
Held insulin due patient discharge and coming transportation
--- NOTE | 2020-02-02 19:05 | NUR ---
Patient is discharged. picked up by ambulance, going home. Discharge protocol implemented, paperwork sahra, instruction provided, IV line removed, ID band removed.
== END 2020-02-02 19:00 | disposition home or self-care (01) | DRG 871 ==
LOC: ER 13:37 → TELE2 15:33 → TELE1 15:38 → TELE-TD 01-29 02:42 → TELE1 01-31 03:15
PROVIDERS: ADMIT Nurse Practitioner Acute Care; ATTEND Nurse Practitioner Acute Care
PROC: 05HD33Z Insertion of Infusion Device into Right Cephalic Vein, Percutaneous Approach (ICD-10-PCS; principal; 2020-02-02)
DX: A41.89 Other specified sepsis (principal); J15.9 Unspecified bacterial pneumonia; N17.0 Acute kidney failure with tubular necrosis; G93.41 Metabolic encephalopathy; I69.354 Hemiplegia and hemiparesis following cerebral infarction affecting left non-dominant side; E87.2 Acidosis; R65.20 Severe sepsis without septic shock; E03.9 Hypothyroidism, unspecified; E11.9 Type 2 diabetes mellitus without complications; E83.42 Hypomagnesemia; I48.91 Unspecified atrial fibrillation; H54.8 Legal blindness, as defined in USA; F03.90 Unspecified dementia, unspecified severity, without behavioral disturbance, psychotic disturbance, mood disturbance, and anxiety; Z79.84 Long term (current) use of oral hypoglycemic drugs; Z79.899 Other long term (current) drug therapy; Z99.3 Dependence on wheelchair; Z87.01 Personal history of pneumonia (recurrent); Z87.81 Personal history of (healed) traumatic fracture; D63.8 Anemia in other chronic diseases classified elsewhere; H40.9 Unspecified glaucoma; Z83.3 Family history of diabetes mellitus; R13.10 Dysphagia, unspecified; I10 Essential (primary) hypertension; F29 Unspecified psychosis not due to a substance or known physiological condition; E78.00 Pure hypercholesterolemia, unspecified; E86.0 Dehydration; E78.5 Hyperlipidemia, unspecified; I49.9 Cardiac arrhythmia, unspecified; B97.89 Other viral agents as the cause of diseases classified elsewhere
CPT/HCPCS: 36415; 71045-TC; 80048-TC; 80053-TC; 80061-TC; 81000-TC; 82248-TC; 82550-TC; 82570-TC; 82728-TC; 82962-TC; 83540-TC; 83605-TC; 83615-TC; 83735-TC; 83880; 83970; 84100-TC; 84155; 84155-TC; 84165; 84300-TC; 84439-TC; 84443-TC; 84484-TC; 85025-TC; 85378-TC; 85730-TC; 86140-TC; 87040-TC; 87070-TC; 87081-TC; 92611-TC; A4349; A4623; C9113; G0378; J1630; J1644; J1815; J2185; J2543; J3370; J3475; J3490; J7030; J7040; J7060; J7070; U0003-CS

== ENCOUNTER 2020-04-27 16:10 | Inpatient (IN) | payer MEDICARE, OTHER ==
[~2020-04-27] VITALS: Ht 157.5 cm; Wt 52.6 kg
[~2020-04-27 16:10] MED LIST: AMIO200T4 PO; AMLO5TAB9 PO; ASPI-1169 PO; ATOR10TA PO; BIMA2.5D5 EACHEYE; BRIM5DRO2 EACHEYE; FINA5TAB11 PO; GABA-532 PO; HYDR-4077 PO; LANS30CA56 PO; LEVO75TA7 PO; METF-442 PO; MIDO5TAB4 PO; POTA10TA11 PO; QUET25TA PO; SIMV10TA98 PO; TAMS-12 PO
--- NOTE | 2020-04-27 16:20 | NUR ---
[facility] HOME, PER EMS REPORT FAMILY CALLED. PT NOT ACTING "RIGHT" X TODAY.HX DEMENTIA. BG 80 BIOLOGICAL PHOTOGRAPHER. UNKOWN LKW. PATIENT A/OX1, CONFUSED, AMHARIC SPEAKING, BREATHING EVEN AND UNLABORED, NO SOB NOTED.
--- NOTE | 2020-04-27 16:27 | NUR ---
medrecon nurse notes called josie (daughter) and verified his home medications.
[2020-04-27] MEDS ORDERED: IV NS 0.9% 500 ML BAG IV ONE (16:30)
[2020-04-27 16:40] LABS: BASOPHILS % (AUTO) 0.3 % (0.0-2.0); HEMATOCRIT 31 % (39-51); HEMOGLOBIN 9.9 g/dL (13.5-17.5); LYMPHOCYTES # (AUTO) 0.6 /CMM (0.8-4.8); LYMPHOCYTES % (AUTO) 4.4 % (20.0-44.0); MEAN CORPUSCULAR HGB CONC 32 g/dl (31.0-36.0); MEAN CORPUSCULAR VOLUME 110 fL (80-96); MONOCYTES # (AUTO) 0.8 /CMM (0.1-1.30); MONOCYTES % (AUTO) 5.5 % (2.0-12.0); NEUTROPHILS # (AUTO) 12.3 /CMM (1.8-8.9); NEUTROPHILS % (AUTO) 89.8 % (43.0-81.0); PLATELET COUNT (AUTO) 154 /CMM (150-450); WHITE BLOOD COUNT (AUTO) 13.7 K/uL (4.3-11.0)
--- NOTE | 2020-04-27 16:40 | NUR ---
COVID SWAB SENT.
[2020-04-27 17:10] LABS: ALANINE AMINOTRANSFERASE 24 U/L (12-78); ALBUMIN 3.1 g/dL (3.4-5.0); ALKALINE PHOSPHATASE 58 U/L (46-116); ASPARTATE AMINOTRANSFERASE 35 U/L (15-37); BILIRUBIN,DIRECT 0.2 mg/dL (0.0-0.2); BILIRUBIN,TOTAL 0.5 mg/dL (0.2-1.0); CHLORIDE 102 mmol/L (98-107); CREATININE 6.5 mg/dL (0.6-1.3); GLUCOSE 78 mg/dL (74-106); SALICYLATE 3.4 mg/dL (2.8-20.0); SODIUM SERUM 143 mmol/L (136-145)
[2020-04-27 17:11] LABS: SERUM AMMONIA 29 umol/L (11-32)
[2020-04-27 17:13] LABS: APPEARANCE,URINE Clear (CLEAR); BILIRUBIN,URINE Negative (NEGATIVE); BLOOD, URINE Negative Ery/uL (NEGATIVE); COLOR,URINE Yellow (YELLOW); KETONES,URINE Trace (NEGATIVE); LEUKOCYTE ESTERASE ,URINE Negative (NEGATIVE); NITRITE, URINE Negative (NEGATIVE); PROTEIN,URINE 30 mg/dl (NEGATIVE); UGLUCOSE Negative (NEGATIVE); UROBILINOGEN,URINE 0.2 EU/dL (0.2)
[2020-04-27 17:20] LABS: THYROID STIMULATING HORMONE 1.608 uIU/mL (0.358-3.74)
[2020-04-27 17:26] LABS: CARBON DIOXIDE 8 mmol/L (21-32); POTASSIUM 7.7 mmol/L (3.5-5.1); UREA NITROGEN, BLOOD 112 mg/dL (7-18)
[2020-04-27 17:27] LABS: BACTERIA,URINE None seen /HPF (None Seen); RBC,URINE 0-2 /HPF (0-2); SQUAMOUS EPITHELIAL CELL,UR Few /HPF (None Seen); WBC,URINE 0-2 /HPF (0-3)
[2020-04-27] MEDS ORDERED: DEXTROSE 50%-WATER 50 ML DISP.SYRIN IV ONE (17:30)
[2020-04-27] MEDS ORDERED: SODIUM BICARBONATE SYR 50 MEQ/50 ML DISP.SYRIN IV ONE (17:30)
[2020-04-27] MEDS ORDERED: CALCIUM CHLORIDE 1,000 MG/10 ML DISP.SYRIN IV ONE (17:30)
[2020-04-27] MEDS ORDERED: IV NS 0.9% 1,000 ML BAG IV ONE (17:30)
[2020-04-27] MEDS ORDERED: INSULIN REGULAR, HUMAN 100 UNIT/ML 10 ML VIAL IV ONE (17:30)
[2020-04-27] MEDS ORDERED: ALBUTEROL FS 2.5 MG/3 ML VIAL.NEB NEB ONE (17:30)
[2020-04-27] MEDS ORDERED: FUROSEMIDE 40 MG/4 ML VIAL IV ONE (17:30)
[2020-04-27] MEDS ORDERED: FUROSEMIDE 20 MG/2 ML VIAL ONE (17:47)
[2020-04-27] MEDS ORDERED: CALCIUM CHLORIDE 1,000 MG/10 ML DISP.SYRIN ONE (17:47)
[2020-04-27] MEDS ORDERED: DEXTROSE 50%-WATER 50 ML DISP.SYRIN ONE (17:47)
[2020-04-27] MEDS ORDERED: INSULIN REGULAR, HUMAN 100 UNIT/ML 10 ML VIAL ONE (17:47)
[2020-04-27] MEDS ORDERED: SODIUM BICARBONATE SYR 50 MEQ/50 ML DISP.SYRIN ONE (17:47)
[2020-04-27] MEDS ORDERED: ALBUTEROL FS 2.5 MG/3 ML VIAL.NEB ONE (17:55)
--- NOTE | 2020-04-27 18:00 | NUR ---
PATIENT IN BED, NO DISTRESS NOTED, NEEDS ATTENDED.
[2020-04-27 18:15] LABS: BAND % (MANUAL) 9 % (0.0-5.0); LYMPHOCYTES % (MANUAL) 8 % (16-48); MONOCYTES % (MANUAL) 7 % (0-11.0); NEUTROPHILS % (MANUAL) 76 (42-76)
[2020-04-27] MEDS ORDERED: *INSULIN REGULAR(HUMULIN R)HUM 100 UNIT/ML VIAL SQ PRN (19:00)
[2020-04-27] MEDS ORDERED: MAGNESIUM HYDROXIDE 30 ML UDC PO PRN (19:00)
[2020-04-27] MEDS ORDERED: ONDANSETRON HCL/PF 4 MG/2 ML VIAL IVP PRN (19:00)
[2020-04-27] MEDS ORDERED: ACETAMINOPHEN 325 MG TABLET PO PRN (19:00)
[2020-04-27] MEDS ORDERED: DEXTROSE 50%-WATER 50 ML DISP.SYRIN IV PRN (19:00)
[2020-04-27] MEDS ORDERED: Z GUARD REMEDY 2 OZ OINT TP PRN (19:00)
[2020-04-27] MEDS ORDERED: MAG HYDROX/AL HYDROX/SIMETH 30 ML UDC PO PRN (19:00)
[2020-04-27 19:08] LABS: ALANINE AMINOTRANSFERASE 21 U/L (12-78); ALBUMIN 2.9 g/dL (3.4-5.0); ALKALINE PHOSPHATASE 59 U/L (46-116); ASPARTATE AMINOTRANSFERASE 30 U/L (15-37); BILIRUBIN,TOTAL 0.5 mg/dL (0.2-1.0); CALCIUM, SERUM 9.5 mg/dL (8.5-10.1); CHLORIDE 105 mmol/L (98-107); CREATININE 6.3 mg/dL (0.6-1.3); GLUCOSE 151 mg/dL (74-106); SODIUM SERUM 146 mmol/L (136-145); TOTAL PROTEIN, SERUM 6.6 g/dL (6.4-8.2)
--- NOTE | 2020-04-27 19:10 | NUR ---
ENDORSED TO HARRY MARCUM.
[2020-04-27 19:13] LABS: POTASSIUM 6.3 mmol/L (3.5-5.1)
[2020-04-27 19:14] LABS: CARBON DIOXIDE 8 mmol/L (21-32); UREA NITROGEN, BLOOD 109 mg/dL (7-18)
--- NOTE | 2020-04-27 20:43 | NUR ---
REPORT GIVEN TO ALLIE MARCUM FOR MARITZA PT WILL BE TRANSPORTED TO ICU
--- NOTE | 2020-04-27 20:54 | NUR ---
TRANSFERRED TO ICU
[2020-04-27] MEDS: IV NS 0.9% 1,000 ML IV SCH (20:56)
[2020-04-27 20:57] VITALS: BP 109/63
[2020-04-27 21:00] VITALS: BP 125/60
[2020-04-27] MEDS ORDERED: SODIUM POLYSTYRENE SULFONATE 15 G/60 ML BOTTLE RC ONE (21:00)
--- NOTE | 2020-04-27 21:00 | NUR ---
HOSTESS HOST RCD PT W/DX HYPERKALEMIA; PT IS ALERT ARMENIAN SPEAKER PULLS ON ECG LEADS. NSR ON MONITOR. SWARTZ CATH DRAINING LARGE AMOUNT OF YELLOW URINE. LEFT ARM RIGID. HEALED SACRAL SCARRING AND ABRASIONS TO LOWER EXTREMITIES.
[2020-04-27 22:00] VITALS: BP 127/59
[2020-04-27] MEDS: BLOOD SUGAR DIAGNOSTIC 1 EACH STRIP VI SCH (22:25)
[2020-04-27 23:00] VITALS: BP 133/70
[2020-04-27 23:34] LABS: CALCIUM, SERUM 9.8 mg/dL (8.5-10.1); CARBON DIOXIDE 8 mmol/L (21-32); CHLORIDE 104 mmol/L (98-107); GLUCOSE 88 mg/dL (74-106); SODIUM SERUM 144 mmol/L (136-145); UREA NITROGEN, BLOOD 106 mg/dL (7-18)
[2020-04-27 23:35] LABS: POTASSIUM 6.5 mmol/L (3.5-5.1)
[2020-04-28] VITALS (20 sets, daily range): BP systolic 96–148; BP diastolic 55–81
--- NOTE | 2020-04-28 | NUR ---
MEAL ATTENDANT PT REMOVED ECG LEADS AND PULLING IV LINES MULTIPLE TIMES; ATTEMPT TO REORIENT PT HOWEVER PTS BASELINE IS CONFUSED. APPLIED RIGHT SOFT WRIST RESTRAINT FOR PT SAFETY. CONTINUE TO MONITOR.
[2020-04-28] MEDS ORDERED: SODIUM POLYSTYRENE SULFONATE 15 G/60 ML BOTTLE ONE ×2 (00:16→05:45)
[2020-04-28 04:22] LABS: BASOPHILS % (AUTO) 0.2 % (0.0-2.0); HEMATOCRIT 33 % (39-51); HEMOGLOBIN 10.8 g/dL (13.5-17.5); LYMPHOCYTES # (AUTO) 0.5 /CMM (0.8-4.8); LYMPHOCYTES % (AUTO) 3.9 % (20.0-44.0); MEAN CORPUSCULAR HGB CONC 33 g/dl (31.0-36.0); MEAN CORPUSCULAR VOLUME 107 fL (80-96); MONOCYTES # (AUTO) 0.7 /CMM (0.1-1.30); MONOCYTES % (AUTO) 5.7 % (2.0-12.0); NEUTROPHILS # (AUTO) 11.5 /CMM (1.8-8.9); NEUTROPHILS % (AUTO) 90.2 % (43.0-81.0); PLATELET COUNT (AUTO) 152 /CMM (150-450); RED BLOOD CELL COUNT(AUTO) 3.05 MIL/uL (4.5-6.0); WHITE BLOOD COUNT (AUTO) 12.7 K/uL (4.3-11.0)
[2020-04-28 04:35] LABS: CALCIUM, SERUM 9.9 mg/dL (8.5-10.1); CARBON DIOXIDE 12 mmol/L (21-32); CHLORIDE 105 mmol/L (98-107); CREATININE 5.9 mg/dL (0.6-1.3); GLUCOSE 101 mg/dL (74-106); PHOSPHORUS 6.1 mg/dL (2.5-4.9); SODIUM SERUM 145 mmol/L (136-145)
[2020-04-28 04:42] LABS: POTASSIUM 6.7 mmol/L (3.5-5.1)
[2020-04-28 04:43] LABS: UREA NITROGEN, BLOOD 104 mg/dL (7-18)
[2020-04-28 05:13] LABS: BAND % (MANUAL) 19 % (0.0-5.0); LYMPHOCYTES % (MANUAL) 5 % (16-48); MONOCYTES % (MANUAL) 4 % (0-11.0); NEUTROPHILS % (MANUAL) 72 (42-76)
[2020-04-28] MEDS ORDERED: FUROSEMIDE 20 MG/2 ML VIAL IV SCH (05:30)
[2020-04-28] MEDS ORDERED: SODIUM POLYSTYRENE SULFONATE 15 G/60 ML BOTTLE PO ONE ×3 (05:30→06:00)
[2020-04-28 05:40] LABS: ABG BASE EXCESS -11.7 mmol/L; ABG OXYGEN SATURATION 92.1 % (92.0-98.5); ABG PCO2 24.5 mmHg (35.0-45.0); ABG PH 7.332 (7.350-7.450); ABG PO2 71.7 mmHg (75.0-100.0); AaDO2 48.7 mmHg; COHb 0.3 % (0.5-1.5); MetHb 0.4 % (0.0-1.5); O2Hb 91.5 % (94.0-97.0); SITE, ABG Right Radial; VENT MODE, BG Room Air
[2020-04-28] MEDS ORDERED: SODIUM BICARBONATE 650 MG TABLET PO ONE (06:00)
--- NOTE | 2020-04-28 06:22 | NUR ---
MAINFRAME APPLICATIONS DEVELOPER PT K REMAINED ELEVATED DESPITE KAYEXELATE BEING GIVEN MULTIPLE TIMES. ANG REALYED TO [facility] TECHNICAL SERVICES MANAGER W/ORDERS RCD. PH 7.332 PCO2 24.5 PO2 71.7 HCO3 12.7. CONTINUE TO MONITOR.
[2020-04-28] MEDS: IV NS 0.9% 1,000 ML IV SCH (07:08)
--- NOTE | 2020-04-28 08:00 | NUR ---
rn icu received pt in bed awake alert does not follow commands hard of understanding what pt is saying as he is making sounds, iv access patent folly patent, safety measures taken, pt has restraint r hand as he is pulling things out release restraint check for sirculation and skin break down, reaplied restraints safety measures taken will cont to monitor.
[2020-04-28] MEDS: MIDODRINE HCL (5MG) 5 MG TABLET PO SCH ×2 (08:05→17:19)
[2020-04-28] MEDS: BLOOD SUGAR DIAGNOSTIC 1 EACH STRIP VI SCH ×4 (08:05→22:27)
[2020-04-28] MEDS: LEVOTHYROXINE SODIUM 75 MCG TABLET PO SCH (08:05)
[2020-04-28] MEDS ORDERED: INSULIN REGULAR, HUMAN 100 UNIT/ML 10 ML VIAL IV ONE (09:30)
[2020-04-28] MEDS ORDERED: DEXTROSE 50%-WATER 50 ML DISP.SYRIN IVP ONE (09:30)
[2020-04-28 09:32] LABS: CALCIUM, SERUM 9.5 mg/dL (8.5-10.1); CARBON DIOXIDE 13 mmol/L (21-32); CHLORIDE 105 mmol/L (98-107); CREATININE 5.6 mg/dL (0.6-1.3); GLUCOSE 106 mg/dL (74-106); POTASSIUM 5.9 mmol/L (3.5-5.1); SODIUM SERUM 142 mmol/L (136-145)
[2020-04-28 09:40] LABS: UREA NITROGEN, BLOOD 103 mg/dL (7-18)
[2020-04-28] MEDS: INSULIN REGULAR, HUMAN 100 UNIT/ML 3 ML VIAL SQ PRN ×2 (12:09→17:21)
[2020-04-28] MEDS: Sodium Bicarbonate 150 MEQ in IV D5W 1,000 ML IV PRN ×2 (12:25→22:50)
[2020-04-28 14:27] LABS: CARBON DIOXIDE 14 mmol/L (21-32); CHLORIDE 106 mmol/L (98-107); CREATININE 5.3 mg/dL (0.6-1.3); GLUCOSE 146 mg/dL (74-106); POTASSIUM 4.9 mmol/L (3.5-5.1); SODIUM SERUM 146 mmol/L (136-145)
[2020-04-28 14:35] LABS: UREA NITROGEN, BLOOD 99 mg/dL (7-18)
[2020-04-28] MEDS: TAMSULOSIN 0.4 MG CAP.SR.24H PO SCH (17:17)
--- NOTE | 2020-04-28 18:29 | NUR ---
special education curriculum specialist pt remain stable no distress noted during shift all md orders follwed safety measures taken, report given to Amor rn pt transfered to tele 1st floor 119-1 stable condition
--- NOTE | 2020-04-28 18:45 | NUR ---
RECEIVED REPORT FROM [facility] ICU/RN.
--- NOTE | 2020-04-28 19:01 | NUR ---
RN CLOSING NOTES Pt in bed awake alert does not follow commands hard of understanding what pt is saying as he is making sounds, iv access patent folly patent, safety measures taken. No acute distress noted. safety precautions noted. Will endorse to next shift for MARITZA.
[2020-04-28 19:51] LABS: ALANINE AMINOTRANSFERASE 21 U/L (12-78); ALBUMIN 2.8 g/dL (3.4-5.0); ALKALINE PHOSPHATASE 73 U/L (46-116); ASPARTATE AMINOTRANSFERASE 29 U/L (15-37); BILIRUBIN,TOTAL 0.5 mg/dL (0.2-1.0); CALCIUM, SERUM 8.7 mg/dL (8.5-10.1); CARBON DIOXIDE 22 mmol/L (21-32); CHLORIDE 104 mmol/L (98-107); GLUCOSE 140 mg/dL (74-106); POTASSIUM 4.3 mmol/L (3.5-5.1); SODIUM SERUM 146 mmol/L (136-145); TOTAL PROTEIN, SERUM 6.6 g/dL (6.4-8.2)
[2020-04-28 19:52] LABS: UREA NITROGEN, BLOOD 97 mg/dL (7-18)
--- NOTE | 2020-04-28 20:00 | NUR ---
RN OPENING NOTE RECEIVED PT IN BED, AWAKE AND CONFUSED. PT IS ON RA , UNLABORED BREATHING. PT ON TELE MONITOR SHOWING SR IN 70s. PT HAS SWARTZ DRAINING URINE.SAFETY MEASURES IN PLACE HOB ELEVATED, CALL LIGHT IN REACH, BED AT LOWEST POSITION, SIDE RAILS UP X2.
[2020-04-28 21:27] LABS: APPEARANCE,URINE OTHER (CLEAR); BILIRUBIN,URINE NEGATIVE (NEGATIVE); BLOOD, URINE TRACE Ery/uL (NEGATIVE); COLOR,URINE YELLOW (YELLOW); KETONES,URINE NEGATIVE (NEGATIVE); LEUKOCYTE ESTERASE ,URINE NEGATIVE (NEGATIVE); NITRITE, URINE NEGATIVE (NEGATIVE); PH,URINE 5.5 (5.0-8.0); PROTEIN,URINE TRACE mg/dl (NEGATIVE); UGLUCOSE NEGATIVE (NEGATIVE); UROBILINOGEN,URINE 0.2 EU/dL (0.2)
[2020-04-28 21:32] LABS: CREATININE, URINE 29.1 MG/DL (30.0-125.0); URINE TOTAL PROTEIN 48.5 mg/dL (0-11.9)
[2020-04-28 21:35] LABS: WBC,URINE 0-2 /HPF (0-3)
[2020-04-28 21:36] LABS: BACTERIA,URINE RARE /HPF (None Seen); HYALINE CASTS, URINE RARE /LPF (None Seen); SQUAMOUS EPITHELIAL CELL,UR 0-2 /HPF (None Seen)
[2020-04-28 22:20] LABS: EOSINOPHIL,URINE None Seen
[2020-04-28 23:44] LABS: CALCIUM, SERUM 8.5 mg/dL (8.5-10.1); CARBON DIOXIDE 27 mmol/L (21-32); CHLORIDE 104 mmol/L (98-107); CREATININE 4.4 mg/dL (0.6-1.3); GLUCOSE 120 mg/dL (74-106); POTASSIUM 4.1 mmol/L (3.5-5.1); SODIUM SERUM 144 mmol/L (136-145)
[2020-04-28 23:47] LABS: UREA NITROGEN, BLOOD 94 mg/dL (7-18)
[2020-04-29] VITALS (17 sets, daily range): BP systolic 66–143; BP diastolic 36–71
[2020-04-29 06:30] LABS: BASOPHILS % (AUTO) 0.1 % (0.0-2.0); EOSINOPHILS % (AUTO) 0.1 % (0.0-6.0); HEMATOCRIT 28 % (39-51); HEMOGLOBIN 9.4 g/dL (13.5-17.5); LYMPHOCYTES # (AUTO) 0.8 /CMM (0.8-4.8); LYMPHOCYTES % (AUTO) 9.3 % (20.0-44.0); MEAN CORPUSCULAR HGB CONC 34 g/dl (31.0-36.0); MEAN CORPUSCULAR VOLUME 105 fL (80-96); MONOCYTES # (AUTO) 0.5 /CMM (0.1-1.30); MONOCYTES % (AUTO) 5.6 % (2.0-12.0); NEUTROPHILS # (AUTO) 7.3 /CMM (1.8-8.9); NEUTROPHILS % (AUTO) 84.9 % (43.0-81.0); PLATELET COUNT (AUTO) 119 /CMM (150-450); RED BLOOD CELL COUNT(AUTO) 2.64 MIL/uL (4.5-6.0); WHITE BLOOD COUNT (AUTO) 8.5 K/uL (4.3-11.0)
[2020-04-29 07:13] LABS: ALANINE AMINOTRANSFERASE 14 U/L (12-78); ALBUMIN 2.6 g/dL (3.4-5.0); ALKALINE PHOSPHATASE 70 U/L (46-116); ASPARTATE AMINOTRANSFERASE 31 U/L (15-37); BILIRUBIN,TOTAL 0.6 mg/dL (0.2-1.0); CALCIUM, SERUM 8.3 mg/dL (8.5-10.1); CARBON DIOXIDE 27 mmol/L (21-32); CHLORIDE 103 mmol/L (98-107); CREATININE 3.9 mg/dL (0.6-1.3); GLUCOSE 121 mg/dL (74-106); MAGNESIUM 1.7 mg/dL (1.8-2.4); PHOSPHORUS 3.6 mg/dL (2.5-4.9); POTASSIUM 3.8 mmol/L (3.5-5.1); SODIUM SERUM 145 mmol/L (136-145); TOTAL PROTEIN, SERUM 6.4 g/dL (6.4-8.2)
[2020-04-29 07:17] LABS: UREA NITROGEN, BLOOD 87 mg/dL (7-18)
[2020-04-29 07:23] LABS: CREATINE KINASE, TOTAL 134 U/L (39-308)
--- NOTE | 2020-04-29 07:23 | NUR ---
RN CLOSING NOTE PT REMAINED STABLE DURING MY SHIFT , NO ACUTE CHANGES. REPORT GIVEN TO INCOMING SHIFT FOR MARITZA.
--- NOTE | 2020-04-29 07:30 | NUR ---
SILK SCREEN PRINTING RACKER OPENING NOTES RECEIVED PT IN BED, AWAKE AND CONFUSED. PT IS ON RA WITH O2 SAT OF 100%. NO ACUTE DISTRESS NOTED AT THIS TIME. PT ON TELE MONITOR SHOWING SR IN 70s. PT HAS SWARTZ DRAINING URINE.SAFETY MEASURES IN PLACE HOB ELEVATED, CALL LIGHT IN REACH, BED AT LOWEST POSITION, SIDE RAILS UP X2. WILL CONTINUE TO MONITOR.
[2020-04-29] MEDS: BLOOD SUGAR DIAGNOSTIC 1 EACH STRIP VI SCH ×4 (08:07→21:58)
[2020-04-29] MEDS: LEVOTHYROXINE SODIUM 75 MCG TABLET PO SCH (08:17)
[2020-04-29] MEDS: MIDODRINE HCL (5MG) 5 MG TABLET PO SCH ×2 (08:17→12:30)
[2020-04-29] MEDS: Sodium Bicarbonate 150 MEQ in IV D5W 1,000 ML IV PRN ×2 (10:51→21:45)
[2020-04-29] MEDS: PIPERACILLIN /TAZOBACTAM 2.25 G in IV D5W 50 ML IV SCH ×2 (12:20→21:31)
[2020-04-29] MEDS: INSULIN REGULAR, HUMAN 100 UNIT/ML 3 ML VIAL SQ PRN ×2 (12:26→22:04)
--- NOTE | 2020-04-29 17:20 | NUR ---
RN NOTES PT NOTED TO BE LETHARGIC, AND UNRESPONSIVE TO VERBAL STIMULI, BUT ABLE TO OPEN EYES AND MAKE MINIMAL GROANING SOUNDS TO TACTILE STIMULI. VITAL SIGNS TAKEN WITH BP TAKEN FROM LEFT ARM: 102.3, 104, 20, 67/43. ANOTHER SET OF VITALS TAKEN, BP TAKEN FROM RIGHT THIGH: 102.1, 103, 20, 111/39. CHANGE OF CONDITION REPORTED TO CHARGE NURSE. PCP PAGED TO REPORT CHANGE IN CONDITION
--- NOTE | 2020-04-29 17:47 | NUR ---
patient lethargic sbp on 70 's,spike on temp 102,DR. PAN NOTIFIED NEW ORDERS AND CARRIED OUT.
[2020-04-29] MEDS: TAMSULOSIN 0.4 MG CAP.SR.24H PO SCH (18:00)
[2020-04-29] MEDS ORDERED: VANCOMYCIN 500 MG in IV D5W 100 ML IV SCH (18:00)
--- NOTE | 2020-04-29 18:00 | NUR ---
RTIXIE NOTES PT TRANSFERRED TO ICU. CONNECTED TO AED, AND APPLIED O2 AT 2LPM. BEDSIDE REPORT GIVEN TO REBECCA FRANCISCO) Addendum: 04/29/20 at 1926 by RAMON SORENSEN RN CLARIFICATION OF DOCUMENTATION DOCUMENTATION ABOVE NOTED AT 7030.
[2020-04-29] MEDS: NOREPINEPHRINE 8 MG in IV NS 0.9% 242 ML IV PRN (18:58)
--- NOTE | 2020-04-29 19:00 | NUR ---
travel registered nurse nicu. received the pt rest on the bed, very unstable. blood pressure was low 72/45. received with iv axis was infiltrated, new iv 20g placed lt hand levophed and bicarb drip started, rt hand swelling and redness noted. lt hand contrated. fc patent. hob elevated. afebrile. will continue to monitor vitals.
--- NOTE | 2020-04-29 19:15 | NUR ---
PT ARRIVED IN ICU ROOM 250 AT 1751. BEDSIDE REPORT RECEIVED BY RAMON MARCUM. PT LETHARGIC, LOW BP IN 70'S, LEVOPHED GTT FROM JUST BROUGHT UP FROM PHARMACY. BLOOD CULTURES DRAWN BY LAB. URINE CULTURES PENDING, ENDORSED TO NEXT SHIFT. PT HAS 2 PERIPHERAL IV SITES, LEFT WRIST IS FLUSHES WITHOUT DIFFICULTY. RIGHT WRIST IS QUESTIONABLE WITH 3+ SWELLING IN LEFT LOWER AND UPPER ARM, ENDORSED TO NEXT SHIFT. PT'S TEMP WHEN HE ARRIVED WAS 99.1AX. 550ML URINE OUTPUT FOR 12 HOUR SHIFT.
--- NOTE | 2020-04-29 19:20 | NUR ---
agriculture teacher. pt is very lethargic, abg done. improvement noted. oxygen 2l via nasal cannula. sat 98%. will continue to monitor
[2020-04-29 19:24] LABS: ALANINE AMINOTRANSFERASE 17 U/L (12-78); ALBUMIN 2.2 g/dL (3.4-5.0); ALKALINE PHOSPHATASE 61 U/L (46-116); ASPARTATE AMINOTRANSFERASE 36 U/L (15-37); BILIRUBIN,TOTAL 0.7 mg/dL (0.2-1.0); CALCIUM, SERUM 7.5 mg/dL (8.5-10.1); CARBON DIOXIDE 36 mmol/L (21-32); CHLORIDE 100 mmol/L (98-107); CREATININE 3.8 mg/dL (0.6-1.3); GLUCOSE 210 mg/dL (74-106); POTASSIUM 3.4 mmol/L (3.5-5.1); SODIUM SERUM 145 mmol/L (136-145); TOTAL PROTEIN, SERUM 5.5 g/dL (6.4-8.2)
--- NOTE | 2020-04-29 19:25 | NUR ---
PATIENT STARTED ON LEVOPHED DRIP AT 0.1 MCG/KG/MIIN FOR SBP 70'S. OBTAINED PICC LINE ORDER/PICC LINE CONSENT GIVEN BY PATIENT DAUGHTER ANGEL. HOUSE SUP MADE AWARE OF NEED FOR PICC LINE.
[2020-04-29 19:28] LABS: UREA NITROGEN, BLOOD 84 mg/dL (7-18)
[2020-04-29 20:14] LABS: ABG BASE EXCESS 9.6 mmol/L; ABG OXYGEN SATURATION 96.8 % (92.0-98.5); ABG PCO2 29.8 mmHg (35.0-45.0); ABG PH 7.633 (7.350-7.450); ABG PO2 84.6 mmHg (75.0-100.0); AaDO2 79.9 mmHg; COHb 0.2 % (0.5-1.5); O2Hb 96.6 % (94.0-97.0); SITE, ABG Right Radial; VENT MODE, BG Nasal Cannula
--- NOTE | 2020-04-29 20:16 | NUR ---
PT ON 2L NC O2 SAT 94-95%, STAT ABG DONE. NOTIFIED RN WITH THE RESULT.
--- NOTE | 2020-04-29 22:30 | NUR ---
agriculture science teacher. lt upper arm pick line placed. mild bleeding noted. will continue to monitor
[2020-04-30] VITALS (83 sets, daily range): BP systolic 57–148; BP diastolic 25–105
--- NOTE | 2020-04-30 | NUR ---
forester silviculture. no changes. will continue to monitor
--- NOTE | 2020-04-30 02:20 | NUR ---
CHEF GERMAN. NO CHANGES. WILL CONTINUE TO MONITOR VITALS.
[2020-04-30] MEDS ORDERED: SODIUM BICARBONATE SYR 50 MEQ/50 ML DISP.SYRIN ONE (02:49)
--- NOTE | 2020-04-30 04:20 | NUR ---
agricultural engineering technologist. pt desaturated 67. 0xygen increased at this time 4 L. WILL CONTINUE TO MONITOR
--- NOTE | 2020-04-30 04:26 | NUR ---
LITIGATION ASSOCIATE. AM CARE, ORAL CARE, BED BATH GIVEN. LINEN CHANGED. REMAINING SAME OXYGEN TOLERATED WELL. SAT 98%. NO ACUTE DISTRESS NOTED. BAILER OPERATORS SUPERVISOR SHOWING NSR, IV LT UPPER ARM PICC LINE LEVOPHED 0.1MCG/KG/MIN, BICARB DRIP 125 ML/H. FC PATENT URINE DRAINING. HOB ELEVATED, WILL CONTINUE TO MONITOR VITALS
[2020-04-30] MEDS: Sodium Bicarbonate 150 MEQ in IV D5W 1,000 ML IV PRN (04:36)
[2020-04-30] MEDS: PIPERACILLIN /TAZOBACTAM 2.25 G in IV D5W 50 ML IV SCH ×3 (04:36→20:11)
--- NOTE | 2020-04-30 06:42 | NUR ---
horticultural specialty grower inside abbi stopped bp 128/62. will continue to monitor
[2020-04-30] MEDS: LEVOTHYROXINE SODIUM 75 MCG TABLET PO SCH (07:30)
[2020-04-30] MEDS: NOREPINEPHRINE 8 MG in IV NS 0.9% 242 ML IV PRN (07:48)
[2020-04-30] MEDS ORDERED: POTASSIUM CHLORIDE 20 MEQ TAB.PRT.SR PO SCH (08:00)
[2020-04-30] MEDS ORDERED: acetaZOLAMIDE SODIUM 500 MG/VIAL VIAL IV ONE (08:30)
[2020-04-30] MEDS ORDERED: DEXTROSE 50%-WATER 50 ML DISP.SYRIN IV PRN (08:30)
[2020-04-30] MEDS: MIDODRINE HCL (5MG) 5 MG TABLET PO SCH ×2 (09:00→15:46)
[2020-04-30 09:14] LABS: ABG BASE EXCESS 15.2 mmol/L; ABG PCO2 43.7 mmHg (35.0-45.0); ABG PH 7.566 (7.350-7.450); ABG PO2 74.1 mmHg (75.0-100.0); AaDO2 131.9 mmHg; COHb 0.3 % (0.5-1.5); O2Hb 94.7 % (94.0-97.0); SITE, ABG Left Radial; VENT MODE, BG 4L NC
[2020-04-30 09:45] LABS: BASOPHILS % (AUTO) 0.1 % (0.0-2.0); EOSINOPHILS % (AUTO) 0.1 % (0.0-6.0); HEMATOCRIT 26 % (39-51); HEMOGLOBIN 8.6 g/dL (13.5-17.5); LYMPHOCYTES # (AUTO) 0.9 /CMM (0.8-4.8); LYMPHOCYTES % (AUTO) 16.4 % (20.0-44.0); MEAN CORPUSCULAR HGB CONC 34 g/dl (31.0-36.0); MEAN CORPUSCULAR VOLUME 105 fL (80-96); MONOCYTES # (AUTO) 0.3 /CMM (0.1-1.30); MONOCYTES % (AUTO) 4.7 % (2.0-12.0); NEUTROPHILS # (AUTO) 4.2 /CMM (1.8-8.9); NEUTROPHILS % (AUTO) 78.7 % (43.0-81.0); PLATELET COUNT (AUTO) 91 /CMM (150-450); RED BLOOD CELL COUNT(AUTO) 2.44 MIL/uL (4.5-6.0); WHITE BLOOD COUNT (AUTO) 5.4 K/uL (4.3-11.0)
[2020-04-30 10:01] LABS: CHLORIDE 102 mmol/L (98-107); CREATININE 2.7 mg/dL (0.6-1.3); GLUCOSE 147 mg/dL (74-106); MAGNESIUM 1.3 mg/dL (1.8-2.4); SODIUM SERUM 147 mmol/L (136-145); UREA NITROGEN, BLOOD 72 mg/dL (7-18)
[2020-04-30 10:04] LABS: CARBON DIOXIDE 41 mmol/L (21-32); POTASSIUM 2.8 mmol/L (3.5-5.1)
[2020-04-30] MEDS: POTASSIUM CL. PREMIX PERIPHER. 50 ML IV SCH ×10 (10:19→21:26)
[2020-04-30] MEDS: HYDROCORTISONE SOD SUCCINATE 100 MG/2 ML VIAL IV SCH ×3 (10:19→20:11)
[2020-04-30 10:23] LABS: LYMPHOCYTES % (MANUAL) 13 % (16-48); MONOCYTES % (MANUAL) 6 % (0-11.0); NEUTROPHILS % (MANUAL) 81 (42-76)
[2020-04-30] MEDS ORDERED: Magnesium 1GM/D5W 100ML PREMIX 100 ML IV SCH (10:30)
[2020-04-30] MEDS ORDERED: Magnesium 1GM/D5W 100ML PREMIX PIGGYBACK IV ONE (11:00)
[2020-04-30] MEDS ORDERED: ALTEPLASE CATHFLO 2 MG/VIAL XX ONE (11:30)
[2020-04-30] MEDS: Magnesium 1GM/D5W 100ML PREMIX 100 ML IV SCH ×3 (11:34→14:29)
[2020-04-30] MEDS: INSULIN REGULAR, HUMAN 100 UNIT/ML 3 ML VIAL SQ PRN ×2 (13:33→18:31)
[2020-04-30] MEDS: BLOOD SUGAR DIAGNOSTIC 1 EACH STRIP IN SCH ×2 (13:36→18:29)
[2020-04-30] MEDS: VANCOMYCIN 500 MG in IV D5W 100 ML IV SCH (15:38)
--- NOTE | 2020-04-30 18:49 | NUR ---
END OF SHIFT NOTE: PT'S AM POTASSIUM WAS 2.8, 100MEQ OF IV POTASSIUM ORDERED. 80 MEQ GIVEN ON THIS SHIFT. 20 MEQ WILL BE ENDORSED TO NEXT SHIFT. PT'S AM MAG LEVEL WAS 1.3, 3GM OF IV MAG ORDERED AND GIVEN ON THIS SHIFT. LEVOPHED GTT TITRATED OFF AT 1845. URINE CULTURE SENT TO LAB THIS SHIFT. PT CURRENTLY ON 5L NC. 1500 ML URINE OUTPUT THIS SHIFT. PT CHECKED ON HOURLY AND PRN BY NURSING STAFF.
--- NOTE | 2020-04-30 19:30 | NUR ---
RN NOTES RECEIVED PATIENT IN BED AWAKE AND CONFUSED. BREATHING NORMAL NO SOB NOTED, RESPIRATION EVEN NON LABORED. CONT ON O2 5L/MIN VIA NC SATURATING 100%. TELE MONITOR SR IN 70'S. IV SITES INTACT PATENT AND FLUIDS AND ATB RUNNING WELL. RT HAND MITTEN IN PLACE FOR SAFETY, LT HAND CONTRACTED. F/C INTACT YELLOW URINE RUNNING TO GRAVITY .SAFETY MEASURES IN PLACE, CALL LIGHT WITHIN REACH, SIDE RAILS UP. WILL CONT TO MONITOR FOR MARITZA.
[2020-05-01] VITALS (35 sets, daily range): BP systolic 105–144; BP diastolic 53–80
[2020-05-01] MEDS: BLOOD SUGAR DIAGNOSTIC 1 EACH STRIP IN SCH ×5 (00:57→23:15)
[2020-05-01] MEDS: INSULIN REGULAR, HUMAN 100 UNIT/ML 3 ML VIAL SQ PRN ×2 (01:01→06:27)
--- NOTE | 2020-05-01 04:00 | NUR ---
BED BATH GIVEN PATIENT TOLERATED WELL.
--- NOTE | 2020-05-01 05:00 | NUR ---
SUCTION THE PATIENT MOUTH CARE PROVIDED, PATIENT TOLERATED WELL.
[2020-05-01 05:05] LABS: BASOPHILS % (AUTO) 0.5 % (0.0-2.0); HEMATOCRIT 25 % (39-51); HEMOGLOBIN 8.4 g/dL (13.5-17.5); LYMPHOCYTES # (AUTO) 0.3 /CMM (0.8-4.8); LYMPHOCYTES % (AUTO) 5.2 % (20.0-44.0); MEAN CORPUSCULAR HGB CONC 33 g/dl (31.0-36.0); MEAN CORPUSCULAR VOLUME 106 fL (80-96); MONOCYTES # (AUTO) 0.2 /CMM (0.1-1.30); MONOCYTES % (AUTO) 2.3 % (2.0-12.0); NEUTROPHILS # (AUTO) 6.2 /CMM (1.8-8.9); PLATELET COUNT (AUTO) 81 /CMM (150-450); RED BLOOD CELL COUNT(AUTO) 2.41 MIL/uL (4.5-6.0); WHITE BLOOD COUNT (AUTO) 6.7 K/uL (4.3-11.0)
[2020-05-01] MEDS: HYDROCORTISONE SOD SUCCINATE 100 MG/2 ML VIAL IV SCH ×3 (05:11→20:42)
[2020-05-01] MEDS: PIPERACILLIN /TAZOBACTAM 2.25 G in IV D5W 50 ML IV SCH (05:12)
[2020-05-01 05:20] LABS: ALANINE AMINOTRANSFERASE 19 U/L (12-78); ALKALINE PHOSPHATASE 63 U/L (46-116); ASPARTATE AMINOTRANSFERASE 43 U/L (15-37); BILIRUBIN,TOTAL 0.7 mg/dL (0.2-1.0); CALCIUM, SERUM 7.2 mg/dL (8.5-10.1); CARBON DIOXIDE 37 mmol/L (21-32); CHLORIDE 103 mmol/L (98-107); CREATININE 2.3 mg/dL (0.6-1.3); GLUCOSE 138 mg/dL (74-106); MAGNESIUM 2.2 mg/dL (1.8-2.4); PHOSPHORUS 3.1 mg/dL (2.5-4.9); POTASSIUM 3.2 mmol/L (3.5-5.1); SODIUM SERUM 145 mmol/L (136-145); TOTAL PROTEIN, SERUM 5.6 g/dL (6.4-8.2); UREA NITROGEN, BLOOD 59 mg/dL (7-18)
[2020-05-01] MEDS: LEVOTHYROXINE SODIUM 75 MCG TABLET PO SCH (07:30)
--- NOTE | 2020-05-01 07:30 | NUR ---
ANGIOGRAPHY NURSE OPENING NOTES RECEIVED PT IN BED, AWAKE AND CONFUSED. TALKING TO SELF. PT IS ON 5L O2 NC WITH O2 SAT OF 100%. NO ACUTE DISTRESS NOTED AT THIS TIME. PT ON TELE MONITOR SHOWING SR IN 64. NO SIGNS OF PAIN. AMOL PICC LINE WITH IVF TKO RUNNING. LEFT HAND G 20. FLUSHES WELL. BOTH SITES CLEAR. PT HAS SWARTZ DRAINING URINE.SAFETY MEASURES IN PLACE HOB ELEVATED, CALL LIGHT IN REACH, BED AT LOWEST POSITION, SIDE RAILS UP X2. WILL CONTINUE TO MONITOR.
--- NOTE | 2020-05-01 07:37 | NUR ---
RN NOTES NO CHANGES NOTED DURING SHIFT. BREATHING NORMAL NO SOB NOTED. RESPIRATION EVEN NON LABORED. NO S/S OF ACUTE DISTRESS NOTED. MEDICATION WERE GIVEN TOLERATED WELL. CURRENTLY PT CONT WITH 5L OXYGEN VIA NC. F/C INTACT YELLOW URINE RUNNING TO GRAVITY. KEPT CLEAN DRY AND COMFORTABLE, ALL NEEDS ARE ATTENDED. ENDORSE TO AM NURSE FOR MARITZA.
[2020-05-01] MEDS: POTASSIUM CL. PREMIX PERIPHER. 50 ML IV SCH ×5 (08:24→18:29)
[2020-05-01] MEDS: MIDODRINE HCL (5MG) 5 MG TABLET PO SCH ×2 (09:00→17:00)
--- NOTE | 2020-05-01 09:00 | NUR ---
RN NOTES GAVIN MEDS NOT GIVEN. AWAITING SPEECH THERAPIST EVALUATION. NPO FOR NOW DUE TO ASPIRATION RISK.
--- NOTE | 2020-05-01 09:18 | NUR ---
RN NOTES PATIENT TRANSFERRED TO ROOM 206. REPORT GIVEN TO JEANETTE MARCUM.
--- NOTE | 2020-05-01 11:00 | NUR ---
COVID test dropped off to lab.
[2020-05-01] MEDS: PIPERACILLIN /TAZOBACTAM 3.375 G in IV D5W 100 ML IV SCH ×2 (12:15→23:16)
--- NOTE | 2020-05-01 18:35 | NUR ---
Patient is stable on O2 2L via nasal canula. Breathing unlabored and even , no distress noted. On TELE SR with PV's HR at 80's. AMOL PICC line intact and patent. F/C in place; draining yellow clean urine. All needs attended. Patient remains NPO ; swallow test was failed.Patuient kept clean and dry. Safety measures in place. Will endorse to next shift for MARITZA
--- NOTE | 2020-05-01 19:15 | NUR ---
amusement park worker opening notes Received Pt from morning nurse. Pt is resting in bed comfortably. Pt is alert and orientedX1. Pt speaks Honduran and able to make needs known. AMOL picc line is clean, intact and flush without resistance. IV sites at Left hand# 20 is clean, intact, flush without resistance and SL. Tele monitor showed SR at 80 bpm. Robb cath is intact, patent and draining yellow urine. Safety precautions is maintained. Bed at low position, brakes locked, side rails upX3 and call light is within reach. Will continue to monitor.
[2020-05-02] VITALS (8 sets, daily range): BP systolic 110–150; BP diastolic 60–71
[2020-05-02] MEDS: VANCOMYCIN 500 MG in IV D5W 100 ML IV SCH (01:58)
[2020-05-02] MEDS ORDERED: VANCOMYCIN 500 MG in IV D5W 100 ML IV SCH (02:00)
--- NOTE | 2020-05-02 04:28 | NUR ---
tattoo designer notes Pt keep trying to pull cardona cath several times. Pt is alert and orientedX1. Explained risks and benefits. Pt keep trying to pull cardona cath. Informed and notified . ordered Sherri lombardi. Ordered carried out.
[2020-05-02] MEDS: HYDROCORTISONE SOD SUCCINATE 100 MG/2 ML VIAL IV SCH ×3 (04:59→20:43)
[2020-05-02] MEDS: BLOOD SUGAR DIAGNOSTIC 1 EACH STRIP IN SCH ×4 (05:16→23:25)
--- NOTE | 2020-05-02 06:47 | NUR ---
pattern generator operator closing notes Pt is resting in bed comfortably. Pt is alert and orientedX1. Respiration is normal in 2 L NC. No SOB. No S/S of distress noted. AMOL picc line is clean, intact and flush without resistance. IV sites at Left hand# 20 is clean, intact, flush without resistance and SL. VS is stable. Routine meds were given as ordered. Tele monitor showed SR at 60 bpm. Robb cath is intact, patent and draining yellow urine 500 ml. R hand mittens is intact, skin is warm to touch and circulation is check Q 2 hr. Turned and repositioned Q 2 hr. Kept Pt clean, dry and comfortable. All needs met and attended. Safety precautions is maintained. Bed at low position, brakes locked, side rails upX3 and call light is within reach. Will endorse to morning nurse for MARITZA.
[2020-05-02 07:24] LABS: LYMPHOCYTES # (AUTO) 0.3 /CMM (0.8-4.8); MEAN CORPUSCULAR HGB CONC 34 g/dl (31.0-36.0); MONOCYTES # (AUTO) 0.3 /CMM (0.1-1.30); NEUTROPHILS # (AUTO) 8.2 /CMM (1.8-8.9); WHITE BLOOD COUNT (AUTO) 8.8 K/uL (4.3-11.0)
[2020-05-02 07:28] LABS: BASOPHILS % (AUTO) 0.1 % (0.0-2.0); HEMATOCRIT 26 % (39-51); HEMOGLOBIN 8.8 g/dL (13.5-17.5); LYMPHOCYTES % (AUTO) 3.8 % (20.0-44.0); MEAN CORPUSCULAR VOLUME 105 fL (80-96); MONOCYTES % (AUTO) 3.5 % (2.0-12.0); NEUTROPHILS % (AUTO) 92.6 % (43.0-81.0); PLATELET COUNT (AUTO) 107 /CMM (150-450)
[2020-05-02] MEDS: LEVOTHYROXINE SODIUM 75 MCG TABLET PO SCH ×2 (07:30→08:26)
--- NOTE | 2020-05-02 07:30 | NUR ---
rn opening notes Pt is in bed comfortably. Pt is alert and orientedX1. Respiration normal in ON 2 L NC. No SOB. No S/S of distress noted. AMOL picc line is clean, intact and flush without resistance. IV sites at Left hand# 20 is clean, intact, flush without resistance and SL. VS is stable. Routine meds were given as ordered. Tele monitor showed SR at 60 bpm. Robb cath is intact, patent and draining yellow urine 500 ml. R hand mittens is intact, skin is warm to touch and circulation is check Q 2 hr. Turned and repositioned Q 2 hr. Kept Pt clean, dry and comfortable. All needs met and attended. Safety precautions is maintained. Bed at low position, brakes locked, side rails upX3 and call light is within reach.
[2020-05-02 08:13] LABS: CALCIUM, SERUM 7.7 mg/dL (8.5-10.1); CARBON DIOXIDE 27 mmol/L (21-32); CHLORIDE 106 mmol/L (98-107); GLUCOSE 180 mg/dL (74-106); MAGNESIUM 2.1 mg/dL (1.8-2.4); PHOSPHORUS 3.1 mg/dL (2.5-4.9); SODIUM SERUM 144 mmol/L (136-145); UREA NITROGEN, BLOOD 49 mg/dL (7-18)
[2020-05-02 08:20] LABS: POTASSIUM 2.6 mmol/L (3.5-5.1)
--- NOTE | 2020-05-02 08:25 | NUR ---
[facility] POTASSIUM LAB REPORTED K+ LEVEL OF 2.6. SENT MESSAGE TO ABEL MCCRACKEN. AWAITING FOR ORDERS. Addendum: 05/02/20 at 0907 by VICENTE ASH RN endorse to joe junior to f/u with order. awaiting orders from
[2020-05-02] MEDS: MIDODRINE HCL (5MG) 5 MG TABLET PO SCH ×2 (08:26→17:00)
--- NOTE | 2020-05-02 09:05 | NUR ---
environmental health safety manager closing notes Pt is in bed comfortably. Pt is alert and orientedX1. Respiration normal in ON 2 L NC. No SOB. No S/S of distress noted. AMOL picc line is clean, intact and flush without resistance. IV sites at Left hand# 20 is clean, intact, flush without resistance and SL. VS is stable. Routine meds were given as ordered. Tele monitor showed SR at 60 bpm. Robb cath is intact, patent and draining yellow urine 500 ml. R hand mittens is intact, skin is warm to touch and circulation is check Q 2 hr. Turned and repositioned Q 2 hr. Kept Pt clean, dry and comfortable. All needs met and attended. Safety precautions is maintained. Bed at low position, brakes locked, side rails upX3 and call light is within reach. Addendum: 05/02/20 at 0906 by VICENTE ASH RN pls disregard note above. wrong entry
--- NOTE | 2020-05-02 09:06 | NUR ---
report given to joe junior for continuity of care
--- NOTE | 2020-05-02 09:30 | NUR ---
cable television line technician note patient i in bed, all needs attended ,on tele monitor sr hr 60 alert with confusion , dr armstrong notified about k 2.6 with new order carried out
[2020-05-02] MEDS: POTASSIUM CHLORIDE 20 MEQ TAB.PRT.SR PO SCH ×3 (09:41→13:00)
--- NOTE | 2020-05-02 10:05 | NUR ---
teletype mechanic note st at bedside, ok to give puree diet
[2020-05-02] MEDS: PIPERACILLIN /TAZOBACTAM 3.375 G in IV D5W 100 ML IV SCH ×2 (12:39→23:06)
[2020-05-02] MEDS: INSULIN REGULAR, HUMAN 100 UNIT/ML 3 ML VIAL SQ PRN ×3 (12:51→23:27)
--- NOTE | 2020-05-02 14:08 | NUR ---
GONZALO MARCUM NOTE: PT RESULTED IN NEGATIVE TEST FOR COVID. GRAVES AT NURSING STATION, REPORT GIVEN TO ELY HILLS. 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 OK TO PUT DVT PUMPS. DR AWARE THAT PT IS ON PUREED DIET AT THIS TIME. WILL CONTINUE TO MONITOR Addendum: 05/02/20 at 1423 by GILMA PIKE RN luis alfredo marcum stamping die maker aware that on tele monitor sb 50-51
--- NOTE | 2020-05-02 15:45 | NUR ---
telephone services sales representative not per dr egan ok to transfer to tele unit will endorse to jerson junior patient is negative for covid
--- NOTE | 2020-05-02 15:47 | NUR ---
OPEN NOTES PATIENT TRANSFER. PATIENT IS A/O X 1 IN BED WITH NO SIGNS OF DISTRESS ON 2L OF NASAL CANNULA . IV L HAND #20 SL AND L UA PICC LINE INTACT. NO COMPLAIN OF PAIN AT THIS MOMENT. SWARTZ CATHETER IN PLACE INTACT. SAFETY MEASURES ARE APPLIED, BED LOW AND LOCKED. SIDE RAILS UP X 2 AND CALL LIGHT WITHIN REACH. WILL CONTINUE TO MONITOR.
--- NOTE | 2020-05-02 15:49 | NUR ---
telegraphic typewriter installer note endorsed care to jerson junior
--- NOTE | 2020-05-02 18:37 | NUR ---
GAVE REPORT TO SAILAJA MARCUM TO 3W. PATIENT VITALS ARE WITHIN NORMAL LIMIT WITH NO SIGNS OF DISTRESS COVID NEGATIVE 05/01/2020. TRANSFERRED PATIENT VIA GURNEY WITH NO COMPLICATIONS.
--- NOTE | 2020-05-02 18:46 | NUR ---
RN NOTES RECEIVED PATIENT FROM TRIXIE DEVRIES. A/O X0, OXYGEN ON 2LPM VIA NC, NO SIGNS OF DISTRESS NOTED. SAFETY MEASURES IN PLACE, BED IN LOWEST LOCKED POSITION WITH SIDE RAILS UP X3. CALL LIGHT WITHIN EASY REACH. WILL ENDORSE TO STATION SUPERVISOR NURSE FOR MARITZA.
--- NOTE | 2020-05-02 19:10 | NUR ---
medical laboratory manager opening notes Pt is resting in bed comfortably. Pt is alert and orientedX1. Pt speaks Sinhala and able to make needs known. No SOB. No S/S of distress noted. AMOL picc line is clean, intact and flushes well. IV sites at Left hand# 20 is clean, intact, flush without resistance and SL. Tele monitor showed SR and sinus elodia HR at 52. R hand mitten is intact, skin is warm to touch, circulation is check Q 2 HR. Robb cath is intact, patent and draining yellow urine. Safety precautions is maintained. Bed at low position, brakes locked, side rails upX3, HOB elevated and call light is within reach. Will continue to monitor.
--- NOTE | 2020-05-02 19:40 | NUR ---
court stenographer notes Pt is having upper ext. duppler test at the bedside with Edward.
--- NOTE | 2020-05-02 20:10 | NUR ---
nurse midwife notes Pt just had upper R ext. florentin with Edward. Pt's test resulted positive DVT on R cephalic vein. Informed and notified Renée VIEYRA NP. RAMP BOSS ordered lovenox pharmacy to dose. Order carried out. Charge nurse is aware and informed.
--- NOTE | 2020-05-02 20:22 | NUR ---
shell worker notes Called and spoke with Pharmacy Sonal regarding lovenox pharmacy to dose. Sonal stated will call the infection control manager. Charge nurse is aware and informed. Will continue to monitor.
[2020-05-02] MEDS ORDERED: ENOXAPARIN SODIUM 60 MG/0.6 ML DISP.SYRIN SQ SCH (20:36)
[2020-05-03] VITALS: BP 148/71
[2020-05-03] MEDS ORDERED: VANCOMYCIN 500 MG in IV D5W 100 ML IV SCH (02:00)
[2020-05-03 04:00] VITALS: BP 130/61
[2020-05-03] MEDS: HYDROCORTISONE SOD SUCCINATE 100 MG/2 ML VIAL IV SCH ×3 (04:15→20:50)
[2020-05-03] MEDS: BLOOD SUGAR DIAGNOSTIC 1 EACH STRIP IN SCH ×4 (05:54→23:27)
[2020-05-03] MEDS: INSULIN REGULAR, HUMAN 100 UNIT/ML 3 ML VIAL SQ PRN ×4 (05:55→23:11)
--- NOTE | 2020-05-03 06:32 | NUR ---
core stacker closing notes Pt is resting in bed comfortably. Pt is alert and orientedX1. Respiration is normal in 2 L NC. No SOB. No S/S of distress noted. AMOL picc line is clean, intact and flushes well. IV sites at Left hand# 20 is clean, intact, flush without resistance and SL. Tele monitor showed sinus elodia HR at 49. VS is stable. Routine meds were given as ordered. R hand mitten is intact, skin is warm to touch, circulation is check Q 2 HR. Robb cath is intact, patent and draining yellow urine 450 ml. Kept Pt clean, dry and comfortable. All needs met and attended. Safety precautions is maintained. Bed at low position, brakes locked, side rails upX3, HOB elevated and call light is within reach. Will endorse to morning nurse for MARITZA.
[2020-05-03 08:00] VITALS: BP 176/82
--- NOTE | 2020-05-03 08:00 | NUR ---
check viewer AM notes Pt is resting in bed comfortably. Pt is alert and orientedX1. Pt speaks Honduran and able to make simple needs known. No SOB. No S/S of distress noted. AMOL picc line is clean, intact and flushes well. IV sites at Left hand# 20 is clean, intact, flush without resistance and SL. Tele monitor showed SR and sinus elodia HR 48-52(when asleep). R hand mitten is intact, skin is warm to touch, circulation is check Q 2 HR. Robb cath is intact, patent and draining yellow urine. Safety precautions is maintained. Turned every two hrs. Bed at low position, brakes locked, side rails upX3, HOB elevated and call light is within reach. Will continue to monitor.
[2020-05-03 08:40] LABS: CALCIUM, SERUM 7.8 mg/dL (8.5-10.1); CARBON DIOXIDE 25 mmol/L (21-32); CHLORIDE 111 mmol/L (98-107); CREATININE 1.5 mg/dL (0.6-1.3); GLUCOSE 188 mg/dL (74-106); SODIUM SERUM 147 mmol/L (136-145); UREA NITROGEN, BLOOD 44 mg/dL (7-18)
[2020-05-03] MEDS: MIDODRINE HCL (5MG) 5 MG TABLET PO SCH ×2 (09:00→16:38)
[2020-05-03 09:04] LABS: POTASSIUM 2.7 mmol/L (3.5-5.1)
--- NOTE | 2020-05-03 10:00 | NUR ---
notified ELY Hutchins of K+2.7 and ELY Hutchins stated top notify Dr Skinner (nephro)about the critical result. Paged Dr Skinner and awaiting for response.
--- NOTE | 2020-05-03 10:10 | NUR ---
NOTIFIED ELY HILLS OF PT'S HIGH BP176/82 HR 56. PT IS ON PROAMATINE.HELD AM PROAMATINE.
[2020-05-03] MEDS: LEVOTHYROXINE SODIUM 75 MCG TABLET PO SCH (11:21)
[2020-05-03] MEDS: ENOXAPARIN SODIUM 30 MG/0.3 ML DISP.SYRIN SQ SCH (11:22)
--- NOTE | 2020-05-03 11:30 | NUR ---
NOTIFIED DR VILLA OF PT'S LOW K+ LEVEL OF 2.7 AWAITING FOR REPLACEMENT.
[2020-05-03] MEDS: PIPERACILLIN /TAZOBACTAM 3.375 G in IV D5W 100 ML IV SCH (11:56)
[2020-05-03] MEDS ORDERED: PIPERACILLIN /TAZOBACTAM 3.375 G in IV D5W 100 ML IV SCH (15:00)
[2020-05-03 16:00] VITALS: BP 161/70
[2020-05-03] MEDS ORDERED: VANCOMYCIN 1 GM in IV D5W 250ml IV SCH (16:00)
--- NOTE | 2020-05-03 16:41 | NUR ---
PT'S BP IS HIGH BP 161/70 HR 56. HELD PROAMATINE.
--- NOTE | 2020-05-03 17:00 | NUR ---
REMINDED DR VILLA OF PT'S LOW K+ LEVEL OF 2.7 BUT STILL NO ORDER FOR REPLACEMENT.
--- NOTE | 2020-05-03 18:00 | NUR ---
PT RESTING IN BED WITH NO C/O PAIN OR DISTRESS.TURNED EVERY TWO HRS.CALL LIGHT PLACE WITHIN REACH.
--- NOTE | 2020-05-03 19:35 | NUR ---
RN NOTES RECEIVED PT. AWAKE ON BED, A/OX1, SLOVAK SPEAKING, SB WITH 1ST DEGREE AV BLOCK HR-59, NOT IN DISTRESS, F/C DRAINING CLEAR YELLOW URINE, PT.'S RIGHT HAS MITTENS, PT WAS TRYING TO PULL OUT HIS IV LINES AND TUBINGS, CIRCULATION IS GOOD, NO PAIN NOTED, SIDERAILSUPX2, CONTINUE TO MONITOR
[2020-05-03 20:00] VITALS: BP 141/55
[2020-05-03] MEDS: CEFEPIME 2 GM in IV D5W 100 ML IV SCH (20:11)
[2020-05-03] MEDS: POTASSIUM CL. PREMIX PERIPHER. 50 ML IV SCH ×3 (21:58→23:54)
[2020-05-04] VITALS: BP 145/58
[2020-05-04] MEDS: POTASSIUM CL. PREMIX PERIPHER. 50 ML IV SCH (00:46)
[2020-05-04 03:52] VITALS: BP 159/52
[2020-05-04] MEDS: HYDROCORTISONE SOD SUCCINATE 100 MG/2 ML VIAL IV SCH ×3 (05:07→20:15)
[2020-05-04] MEDS: BLOOD SUGAR DIAGNOSTIC 1 EACH STRIP IN SCH ×4 (05:14→23:05)
[2020-05-04] MEDS: INSULIN REGULAR, HUMAN 100 UNIT/ML 3 ML VIAL SQ PRN ×4 (06:27→23:06)
--- NOTE | 2020-05-04 06:38 | NUR ---
RN NOTES awake, morning care rendered, not in distress, no pain noted, siderails upx2, pt. needs attended
[2020-05-04 06:58] LABS: CALCIUM, SERUM 7.9 mg/dL (8.5-10.1); CARBON DIOXIDE 21 mmol/L (21-32); CHLORIDE 109 mmol/L (98-107); CREATININE 1.6 mg/dL (0.6-1.3); GLUCOSE 192 mg/dL (74-106); POTASSIUM 3.1 mmol/L (3.5-5.1); SODIUM SERUM 144 mmol/L (136-145); UREA NITROGEN, BLOOD 37 mg/dL (7-18)
--- NOTE | 2020-05-04 07:58 | NUR ---
Report received from night RN. Patient alert, awake and oriented x1. Urdu speaking. NO s/s of distress or discomfort noted. No SOB. no c/o pain, no facial grimacing or moaning noted. Bed locked and in lowest position. Call light within reach. Will continue to monitor patient.
[2020-05-04 08:00] VITALS: BP 134/45
[2020-05-04] MEDS: CEFEPIME 2 GM in IV D5W 100 ML IV SCH ×2 (08:56→20:03)
[2020-05-04] MEDS: MIDODRINE HCL (5MG) 5 MG TABLET PO SCH ×2 (09:00→17:00)
[2020-05-04] MEDS: ENOXAPARIN SODIUM 30 MG/0.3 ML DISP.SYRIN SQ SCH (09:14)
[2020-05-04] MEDS: LEVOTHYROXINE SODIUM 75 MCG TABLET PO SCH (09:14)
[2020-05-04] MEDS: POTASSIUM CHLORIDE 20 MEQ TAB.PRT.SR PO SCH ×3 (10:03→12:43)
[2020-05-04 16:00] VITALS: BP 160/52
--- NOTE | 2020-05-04 17:26 | NUR ---
Patient alert, awake, no s/s of distress or discomfort noted. Patient had breakfast, lunch and dinner with good appetite. accuchecks done, insulin given per sliding scale order. Patient repositioned Q2H and as needed, tolerated well. Patient with 2L O2 via NC, O2 sat. WNL. PICC line on left upper arm. Robb catheter intact. Right hand mitten in place as ordered for patient safety and to prevent patient from pulling out tubes and lines. Bed locked and in lowest position, call light within reach. Patient continuously monitored. Patient to follow up with infectious disease [facility] tomorrow.
--- NOTE | 2020-05-04 19:30 | NUR ---
RN NOTES RECEIVED PT. AWAKE ON BED, A/OX1, CONFUSED WITH RIGHT HAND MITTENS, PICC LINE IN PLACE, NOT IN DISTRESS, NO PAIN NOTED, SIDERAIL UPX2, CONTINUE TO MONITOR
[2020-05-04 20:00] VITALS: BP_SYST 151; BP_SYST 159; BP_DIAS 71; BP_DIAS 75
[2020-05-05] MEDS: HYDROCORTISONE SOD SUCCINATE 100 MG/2 ML VIAL IV SCH ×2 (04:19→17:24)
[2020-05-05] MEDS: BLOOD SUGAR DIAGNOSTIC 1 EACH STRIP IN SCH ×3 (05:39→17:26)
[2020-05-05] MEDS: INSULIN REGULAR, HUMAN 100 UNIT/ML 3 ML VIAL SQ PRN ×3 (05:52→17:29)
[2020-05-05 06:25] LABS: HEMATOCRIT 23 % (39-51); HEMOGLOBIN 7.7 g/dL (13.5-17.5); LYMPHOCYTES # (AUTO) 0.4 /CMM (0.8-4.8); LYMPHOCYTES % (AUTO) 4.2 % (20.0-44.0); MEAN CORPUSCULAR HGB CONC 33 g/dl (31.0-36.0); MEAN CORPUSCULAR VOLUME 106 fL (80-96); MONOCYTES # (AUTO) 0.5 /CMM (0.1-1.30); MONOCYTES % (AUTO) 4.8 % (2.0-12.0); NEUTROPHILS # (AUTO) 9.1 /CMM (1.8-8.9); PLATELET COUNT (AUTO) 107 /CMM (150-450); RED BLOOD CELL COUNT(AUTO) 2.18 MIL/uL (4.5-6.0)
--- NOTE | 2020-05-05 06:31 | NUR ---
RN NOTES AWAKE, MORNING CARE RENDERED, NOT IN DISTRESS, NO PAIN NOTED, SIDERAILSUPX2, PT. NEEDS ATTENDED
[2020-05-05 07:10] LABS: ALANINE AMINOTRANSFERASE 30 U/L (12-78); ALBUMIN 2.1 g/dL (3.4-5.0); ALKALINE PHOSPHATASE 58 U/L (46-116); ASPARTATE AMINOTRANSFERASE 35 U/L (15-37); BILIRUBIN,TOTAL 0.5 mg/dL (0.2-1.0); CALCIUM, SERUM 7.5 mg/dL (8.5-10.1); CARBON DIOXIDE 20 mmol/L (21-32); CHLORIDE 111 mmol/L (98-107); CREATININE 1.4 mg/dL (0.6-1.3); GLUCOSE 205 mg/dL (74-106); MAGNESIUM 1.7 mg/dL (1.8-2.4); PHOSPHORUS 2.4 mg/dL (2.5-4.9); SODIUM SERUM 145 mmol/L (136-145); TOTAL PROTEIN, SERUM 5.3 g/dL (6.4-8.2); UREA NITROGEN, BLOOD 31 mg/dL (7-18)
[2020-05-05 07:19] LABS: POTASSIUM 2.6 mmol/L (3.5-5.1)
--- NOTE | 2020-05-05 07:30 | NUR ---
07:30 Report received from night RN. Patient awake, alert and verbally responsive, tamazight speaking, no c/o pain, no facial grimacing or moaning noted. No s/s of distress or discomfort. Due medications given as ordered, tolerated well. Critical lab result received FLIGHT ATTENDANT/INFLIGHT MANAGER aware with new orders, orders noted and carried out. HOB elevated to prevent aspiration. On 2L O2 via NC, no SOB noted. Patient tolerated well. Will continue to monitor.
--- NOTE | 2020-05-05 08:00 | NUR ---
MS RN AM NOTES Patient alert, awake, no s/s of distress or discomfort noted. Respirations non labored on room air/or with O2. Patient repositioned Q2H and as needed, tolerated well. Patient with 2L O2 via NC, O2 sat. WNL. PICC line on left upper arm. Robb catheter intact. Right hand mitten in place as ordered for patient safety and to prevent patient from pulling out tubes and lines. Checked for rt hand for circulation. Bed locked and in lowest position, call light within reach. Patient continuously monitored.
[2020-05-05] MEDS: CEFEPIME 2 GM in IV D5W 100 ML IV SCH ×2 (08:22→20:44)
[2020-05-05] MEDS ORDERED: POTASSIUM CHLORIDE 20 MEQ TAB.PRT.SR PO ONE ×2 (08:30→12:00)
[2020-05-05] MEDS: ENOXAPARIN SODIUM 30 MG/0.3 ML DISP.SYRIN SQ SCH (08:34)
[2020-05-05] MEDS: LEVOTHYROXINE SODIUM 75 MCG TABLET PO SCH (08:36)
[2020-05-05 08:51] VITALS: BP 130/72
[2020-05-05] MEDS: MIDODRINE HCL (5MG) 5 MG TABLET PO SCH ×2 (09:00→17:00)
[2020-05-05 10:11] LABS: LYMPHOCYTES % (MANUAL) 4 % (16-48); MONOCYTES % (MANUAL) 1 % (0-11.0); NEUTROPHILS % (MANUAL) 95 (42-76)
[2020-05-05] MEDS: POTASSIUM CHLORIDE 20 MEQ TAB.PRT.SR PO SCH ×4 (10:27→12:15)
[2020-05-05] MEDS: NEUTRA PHOS 1 POWD.PACKET PO SCH ×2 (10:27→17:21)
[2020-05-05] MEDS: Magnesium 1GM/D5W 100ML PREMIX 100 ML IV SCH ×2 (10:28→11:43)
--- NOTE | 2020-05-05 11:30 | NUR ---
11:30 Accuchecks done, insulin given per sliding scale order. Patient had lunch, tolerated well. Turned and repositioned as needed and tolerated. bed locked and in lowest position. Call light within easy reach. Will continue to monitor.
[2020-05-05 16:32] LABS: CALCIUM, SERUM 7.8 mg/dL (8.5-10.1); CARBON DIOXIDE 21 mmol/L (21-32); CHLORIDE 112 mmol/L (98-107); CREATININE 1.5 mg/dL (0.6-1.3); GLUCOSE 249 mg/dL (74-106); POTASSIUM 3.9 mmol/L (3.5-5.1); SODIUM SERUM 144 mmol/L (136-145); UREA NITROGEN, BLOOD 31 mg/dL (7-18)
[2020-05-05 16:48] VITALS: BP 154/66
[2020-05-05 18:55] LABS: CHLORIDE,URINE RANDOM 108 mmol/L (55-125); POTASSIUM RNDM,URINE 56 mmol/L (25-125); URINE SODIUM, RANDOM 64 mmol/l (40-220)
--- NOTE | 2020-05-05 18:58 | NUR ---
PT RESTING IN BED DENYING ANY PAIN OR DISTRESS.TURNED EVERY TWO HRS NEEDS ANTICIPATED AND ATTENDED.
--- NOTE | 2020-05-05 19:00 | NUR ---
MS RN OPENING NOTES: PATIENT IN BED, AWAKE, A/O X1,CONFUSED. NO S'/S OF DISTRESS NOTED. NOT IN PAIN. HOB ELEVATED AT ALL TIMES. NO BP TAKING ON THE RIGHT ARM AND NO BLOOD DRAW ON THE RIGHT ARM. WITH RIGHT HAND MITTEN ON, SKIN AND CIRCULATION ARE WNL. SKIN TEAR NOTED ON THE RIGHT FOREARM. WITH SWARTZ CATHETER INTACT, SECURED WITH TAPE,WITH CLEAR YELLOW URINE OUTPUT. LEFT ARM CONTRACTED.
[2020-05-05 20:00] VITALS: BP 118/73
[2020-05-05 22:03] LABS: OSMOLALITY,URINE 592 mOS/kg (340-1090)
[2020-05-06] MEDS: INSULIN REGULAR, HUMAN 100 UNIT/ML 3 ML VIAL SQ PRN ×5 (00:26→23:29)
[2020-05-06] MEDS: BLOOD SUGAR DIAGNOSTIC 1 EACH STRIP IN SCH ×5 (00:26→23:27)
--- NOTE | 2020-05-06 06:00 | NUR ---
MS RN CLOSING NOTES: PATIENT IN BED, AWAKE, NO S/S OF DISTRESS NOTED. HOB ELEVATED AT 45 DEGREES AT ALL TIMES. TURNED AND REPOSITIONED. BED ALARM ON. BED IN LOWEST AND LOCKED POSITION. LEFT UPPER ARM PICC LINE DRESSING CHANGED.
[2020-05-06] MEDS: HYDROCORTISONE SOD SUCCINATE 100 MG/2 ML VIAL IV SCH (06:57)
[2020-05-06 07:01] LABS: HEMATOCRIT 24 % (39-51); LYMPHOCYTES # (AUTO) 0.4 /CMM (0.8-4.8); LYMPHOCYTES % (AUTO) 2.6 % (20.0-44.0); MEAN CORPUSCULAR HGB CONC 33 g/dl (31.0-36.0); MEAN CORPUSCULAR VOLUME 105 fL (80-96); MONOCYTES # (AUTO) 0.7 /CMM (0.1-1.30); MONOCYTES % (AUTO) 5.3 % (2.0-12.0); NEUTROPHILS # (AUTO) 12.4 /CMM (1.8-8.9); NEUTROPHILS % (AUTO) 92.1 % (43.0-81.0); PLATELET COUNT (AUTO) 151 /CMM (150-450); RED BLOOD CELL COUNT(AUTO) 2.31 MIL/uL (4.5-6.0); WHITE BLOOD COUNT (AUTO) 13.5 K/uL (4.3-11.0)
--- NOTE | 2020-05-06 07:25 | NUR ---
MS RN NOTES PATIENT IN BED ALERT ORIENTED X 1, WITH CONFUSION. NO ACUTE DISTRESS NOTED. BREATHING UNLABORED. NO SOB NOTED. IV ACCESS PATENT AND INTACT, NO REDNESS, NO SWELLING NOTED. SAFETY MEASURES IN PLACE. CALL LIGHT WITHIN REACH. WILL CONTINUE TO MONITOR ACCORDINGLY.
[2020-05-06 07:27] LABS: ALBUMIN 2.4 g/dL (3.4-5.0); BILIRUBIN,TOTAL 0.6 mg/dL (0.2-1.0); CREATININE 1.3 mg/dL (0.6-1.3); PHOSPHORUS 1.9 mg/dL (2.5-4.9); POTASSIUM 3.3 mmol/L (3.5-5.1); TOTAL PROTEIN, SERUM 5.8 g/dL (6.4-8.2)
[2020-05-06] MEDS: LEVOTHYROXINE SODIUM 75 MCG TABLET PO SCH (07:33)
[2020-05-06] MEDS: CEFEPIME 2 GM in IV D5W 100 ML IV SCH ×2 (08:18→20:24)
[2020-05-06] MEDS: ENOXAPARIN SODIUM 30 MG/0.3 ML DISP.SYRIN SQ SCH (08:44)
[2020-05-06] MEDS: MIDODRINE HCL (5MG) 5 MG TABLET PO SCH ×2 (09:00→17:00)
[2020-05-06] MEDS ORDERED: POTASSIUM CHLORIDE 20 MEQ POWDER PACKET PO SCH (09:30)
[2020-05-06] MEDS ORDERED: BISACODYL SUPP (10 MG) 10 MG/SUPP.RECT SUPP.RECT RC ONE (11:00)
[2020-05-06] MEDS: NEUTRA PHOS 1 POWD.PACKET PO SCH ×2 (11:35→18:35)
[2020-05-06 12:45] LABS: LYMPHOCYTES % (MANUAL) 2 % (16-48); MONOCYTES % (MANUAL) 2 % (0-11.0); MYELOCYTES % 2 % (0-0); NEUTROPHILS % (MANUAL) 94 (42-76)
[2020-05-06 16:00] VITALS: BP 148/70
--- NOTE | 2020-05-06 19:00 | NUR ---
MS RN NOTES PATIENT IN BED ALERT ORIENTED X 1, WITH CONFUSION. NO ACUTE DISTRESS NOTED. BREATHING UNLABORED. NO SOB NOTED. IV ACCESS PATENT AND INTACT, NO REDNESS, NO SWELLING NOTED. NEEDS ATTENDED AND ANTICIPATED. KEPT CLEAN DRY AND COMFORTABLE.TURN AND REPOSITION EVERY 2 HOURS AND NEEDED. CALL LIGHT WITHIN REACH. WILL ENDORSE TO NIGHT NURSE FOR CONTINUITY OF CARE.
--- NOTE | 2020-05-06 19:30 | NUR ---
MS RN NOTES PATIENT IN BED ALERT ORIENTED X 1, WITH CONFUSION. NO ACUTE DISTRESS NOTED. BREATHING UNLABORED. NO SOB NOTED. IV ACCESS PATENT AND INTACT, NO REDNESS, NO SWELLING NOTED. NEEDS ATTENDED AND ANTICIPATED. TURN AND REPOSITION EVERY 2 HOURS AND NEEDED. CALL LIGHT WITHIN REACH. WILL CONTINUE TO MONITOR
[2020-05-06 20:00] VITALS: BP 153/71
[2020-05-07] MEDS: BLOOD SUGAR DIAGNOSTIC 1 EACH STRIP IN SCH ×2 (05:51→13:08)
--- NOTE | 2020-05-07 06:47 | NUR ---
MS RN CLOSING NOTES: PATIENT IN BED, AWAKE, NO S/S OF DISTRESS NOTED. AMOL PICC LINE INTACT. TURNED AND REPOSITIONED. BED ALARM ON. BED IN LOWEST AND LOCKED POSITION.
--- NOTE | 2020-05-07 07:50 | NUR ---
RN OPEN NOTES PATIENT IS SLEEPING A/O X 1 WITH NO SIGNS OF DISTRESS ON 3L OF NASAL CANNULA. L UA PICC LINE INTACT. NO SIGNS OF PAIN AT THIS MOMENT. SAFETY MEASURES ARE APPLIED, BED IS LOW AND LOCKED POSITION. SIDE RAILS UP X 2 FOR SAFETY. CALL LIGHT WITHIN REACH. WILL CONTINUE TO MONITOR.
[2020-05-07 08:00] VITALS: BP 153/70
[2020-05-07 08:19] LABS: EOSINOPHILS % (AUTO) 0.5 % (0.0-6.0); HEMATOCRIT 26 % (39-51); HEMOGLOBIN 8.6 g/dL (13.5-17.5); LYMPHOCYTES # (AUTO) 0.6 /CMM (0.8-4.8); LYMPHOCYTES % (AUTO) 6.1 % (20.0-44.0); MEAN CORPUSCULAR HGB CONC 34 g/dl (31.0-36.0); MEAN CORPUSCULAR VOLUME 105 fL (80-96); MONOCYTES # (AUTO) 0.6 /CMM (0.1-1.30); MONOCYTES % (AUTO) 6.2 % (2.0-12.0); NEUTROPHILS # (AUTO) 8.4 /CMM (1.8-8.9); NEUTROPHILS % (AUTO) 87.2 % (43.0-81.0); PLATELET COUNT (AUTO) 150 /CMM (150-450); RED BLOOD CELL COUNT(AUTO) 2.45 MIL/uL (4.5-6.0); WHITE BLOOD COUNT (AUTO) 9.6 K/uL (4.3-11.0)
[2020-05-07 08:55] LABS: CALCIUM, SERUM 7.9 mg/dL (8.5-10.1); CREATININE 1.1 mg/dL (0.6-1.3); POTASSIUM 3.3 mmol/L (3.5-5.1)
[2020-05-07 08:56] VITALS: BP 153/70
[2020-05-07] MEDS: MIDODRINE HCL (5MG) 5 MG TABLET PO SCH (08:56)
[2020-05-07] MEDS: LEVOTHYROXINE SODIUM 75 MCG TABLET PO SCH (08:56)
[2020-05-07] MEDS: CEFEPIME 2 GM in IV D5W 100 ML IV SCH (08:57)
[2020-05-07] MEDS ORDERED: HYDROCORTISONE SOD SUCCINATE 100 MG/2 ML VIAL IV SCH (09:00)
[2020-05-07] MEDS: ENOXAPARIN SODIUM 30 MG/0.3 ML DISP.SYRIN SQ SCH (09:00)
[2020-05-07] MEDS: POTASSIUM CHLORIDE 20 MEQ TAB.PRT.SR PO SCH ×3 (10:28→13:08)
[2020-05-07] MEDS: INSULIN REGULAR, HUMAN 100 UNIT/ML 3 ML VIAL SQ PRN (13:17)
--- NOTE | 2020-05-07 16:53 | NUR ---
DISCHARGE NOTES PATIENT VITAL SIGNS ARE WITHIN NORMAL LIMIT, WITH NO SIGNS OF DISTRESS ON 3L OF NASAL CANNULA. DISCHARGE INFORMATION PROVIDED TO NIC PATRICK AND AWARE PATIENT WILL BE GOING HOME WITH SWARTZ CATHETER VERBALIZE UNDERSTANDING. BELONGING LIST SIGNED BY TWO RNS AND COMPLETED. DISCHARGE PICTURES WERE TAKEN. SPOKE WITH SALESFORCE BUSINESS ANALYST DARIANA BUSTAMANTE FROM [facility] [employer] AWARE PATIENT IS GOING HOME WITH HOME Brain in Hand [phone] HARRY FROM [facility] AWARE. PATIENT LEFT VIA AMBULANCE. Addendum: 05/07/20 at 1709 by CECY BEAR RN DISCHARGE NOTES PATIENT VITAL SIGNS ARE WITHIN NORMAL LIMIT, WITH NO SIGNS OF DISTRESS ON 3L OF NASAL CANNULA. DISCHARGE INFORMATION PROVIDED TO NCI PATRICK AND AWARE PATIENT WILL BE GOING HOME WITH SWARTZ CATHETER VERBALIZE UNDERSTANDING. BELONGING LIST SIGNED BY TWO RNS AND COMPLETED. DISCHARGE PICTURES WERE TAKEN. L UA PICC LINE REMOVED WITH NO SIGNS OF BLEEDING AND COVERED. SPOKE WITH SALESFORCE BUSINESS ANALYST DARIANA BUSTAMANTE FROM [facility] [employer] AWARE PATIENT IS GOING HOME WITH HOME [employer] [phone] HARRY FROM [employer] AWARE. PATIENT LEFT VIA AMBULANCE.
--- NOTE | 2020-05-07 19:06 | NUR ---
FAXED DISCHARGE PAPERWORK TO SIGN LETTERER DARIANA BUSTAMANTE FROM [facility].
== END 2020-05-07 16:45 | disposition home or self-care (01) | DRG 177 ==
LOC: ER 16:10 → ICU 20:06 → TELE1 04-28 18:14 → ICU 04-29 17:48 → TELE 05-01 08:50 → ICU 05-01 08:59 → TELE2 05-01 09:08 → TELE 05-02 18:35 → MED 05-04 10:33
PROVIDERS: ADMIT Internal Medicine; ATTEND Nurse Practitioner Acute Care
PROC: 02HV33Z Insertion of Infusion Device into Superior Vena Cava, Percutaneous Approach (ICD-10-PCS; principal; 2020-04-29)
PROC: B548ZZA Ultrasonography of Superior Vena Cava, Guidance (ICD-10-PCS; 2020-04-29)
DX: J15.6 Pneumonia due to other Gram-negative bacteria (principal); G93.41 Metabolic encephalopathy; N17.0 Acute kidney failure with tubular necrosis; J96.01 Acute respiratory failure with hypoxia; E44.0 Moderate protein-calorie malnutrition; I69.354 Hemiplegia and hemiparesis following cerebral infarction affecting left non-dominant side; I82.611 Acute embolism and thrombosis of superficial veins of right upper extremity; D68.59 Other primary thrombophilia; R64 Cachexia; E87.0 Hyperosmolality and hypernatremia; N13.8 Other obstructive and reflux uropathy; R57.9 Shock, unspecified; E87.5 Hyperkalemia; D69.6 Thrombocytopenia, unspecified; E03.9 Hypothyroidism, unspecified; H40.9 Unspecified glaucoma; E11.42 Type 2 diabetes mellitus with diabetic polyneuropathy; N18.9 Chronic kidney disease, unspecified; E11.22 Type 2 diabetes mellitus with diabetic chronic kidney disease; I12.9 Hypertensive chronic kidney disease with stage 1 through stage 4 chronic kidney disease, or unspecified chronic kidney disease; D53.9 Nutritional anemia, unspecified; J69.0 Pneumonitis due to inhalation of food and vomit; K56.41 Fecal impaction; Z83.3 Family history of diabetes mellitus; E78.5 Hyperlipidemia, unspecified; E86.1 Hypovolemia; E87.6 Hypokalemia; F03.90 Unspecified dementia, unspecified severity, without behavioral disturbance, psychotic disturbance, mood disturbance, and anxiety; Z79.82 Long term (current) use of aspirin; Z79.84 Long term (current) use of oral hypoglycemic drugs; Z79.899 Other long term (current) drug therapy; N40.1 Benign prostatic hyperplasia with lower urinary tract symptoms; D63.8 Anemia in other chronic diseases classified elsewhere; Z74.09 Other reduced mobility
CPT/HCPCS: 36415; 36600; 70450-TC; 71045-TC; 76770-TC; 80048-TC; 80053-TC; 80076-TC; 80202-TC; 80305; 81000-TC; 82140-TC; 82436-TC; 82533; 82550-TC; 82570-TC; 82803-TC; 82962-TC; 83735-TC; 83935-TC; 83970; 84100-TC; 84133-TC; 84155; 84155-TC; 84165; 84300-TC; 84443-TC; 84484-TC; 85025-TC; 85730-TC; 87040-TC; 87081-TC; 87086-TC; 92521; 92526; 92611-TC; 93307-TC; 93971-TC; 94799-TC; C1751; C9803-CS; G0378; G0480; J0692; J1120; J1650; J1720; J1815; J1940; J2543; J2997; J3370; J3475; J3480; J3490; J7030; J7040; J7050; J7060; J7070; U0003-CS